=== PATIENT | female | born 1950 | race Caucasian/White ===

== ENCOUNTER 2017-01-15 13:49 | Outpatient (CLI) ==
[2016-02-09 19:26] VITALS: BMI 36.5
[2017-01-15 14:01] LABS: BASOPHILS % (AUTO) 0.6 % (0.0-3.0); EOSINOPHILS # (AUTO) 0.1 K/ul (0.0-0.7); EOSINOPHILS % (AUTO) 1.7 % (0.0-7.0); HEMATOCRIT 38.9 % (37.0-47.0); IMMATURE GRANULOCYTE % (AUTO) 0.4 % (0.0-5.0); LYMPHOCYTES # (AUTO) 1.7 K/uL (0.60-3.4); MEAN CORPUSCULAR HEMOGLOBIN 30.3 pg (27.0-31.0); MEAN CORPUSCULAR HGB CONC 33.4 (31.8-35.4); MEAN CORPUSCULAR VOLUME 90.7 fl (81.0-99.0); MONOCYTES # (AUTO) 0.3 K/uL (0.4-2.0); NEUTROPHILS # (AUTO) 3.1 K/ul (2.0-6.9); NEUTROPHILS % (AUTO) 59.3; PLATELET COUNT 208 10^3/uL (140-440); RED BLOOD COUNT 4.29 10^6/ul (4.20-5.40); WHITE BLOOD COUNT 5.15 K/ul (4.6-10.2)
[2017-01-15 14:37] LABS: ALBUMIN 4.2 g/dL (3.4-5.0); ALBUMIN/GLOBULIN RATIO 1.08; ANION GAP 15.6; BILIRUBIN,TOTAL 0.75 mg/dL (0.00-1.20); BUN/CREATININE RATIO 19.23; CALCIUM 9.9 mg/dL (8.2-10.2); CHOL/HDL RATIO 3.2 (4.5-5.5); CREATININE 1.04 mg/dL (0.60-1.30); POTASSIUM 3.6 mmol/L (3.5-5.10); TOTAL PROTEIN 8.1 g/dL (5.8-8.1)
== END 2017-01-15 13:50 | disposition home or self-care (01) ==
LOC: LAB 13:49
PROVIDERS: ATTEND Emergency Medicine
DX: E11.9 Type 2 diabetes mellitus without complications (principal); E78.5 Hyperlipidemia, unspecified; I10 Essential (primary) hypertension; F33.1 Major depressive disorder, recurrent, moderate
CPT/HCPCS: 36415; 80053; 80061; 83036; 84443; 85025

== ENCOUNTER 2017-03-26 07:55 | Outpatient (CLI) ==
[2016-02-09 19:26] VITALS: BMI 36.5
--- NOTE | 2017-03-27 09:54 | MAMMO ---
EXAM: Digital screening mammogram with 3-D tomosynthesis and CAD HISTORY: Screening for breast cancer. COMPARISON: Mammogram 04/05/2013 and 03/30/2012 FINDINGS: Breasts demonstrate scattered fibroglandular breast density. There are a few benign scatter ed calcifications. There is no new or suspicious nodule or calcification identified. IMPRESSION: No new or suspicious nodule or calcification. Recommendation: Annual screening mammogram. BIRADS II: Benign findings
== END 2017-03-26 07:56 | disposition home or self-care (01) ==
LOC: RAD 07:55
PROVIDERS: ATTEND Emergency Medicine
DX: Z12.31 Encounter for screening mammogram for malignant neoplasm of breast (principal)
CPT/HCPCS: 77067

== ENCOUNTER 2017-07-13 16:53 | Outpatient (CLI) ==
[2016-02-09 19:26] VITALS: BMI 36.5
== END 2017-07-13 16:54 | disposition home or self-care (01) ==
LOC: RHC-LAB 16:53
PROVIDERS: ATTEND Emergency Medicine
DX: E78.5 Hyperlipidemia, unspecified (principal); I10 Essential (primary) hypertension; E11.9 Type 2 diabetes mellitus without complications; N18.3 Chronic kidney disease, stage 3 (moderate)
CPT/HCPCS: 36415; 80053; 80061; 83036; 84443; 85025

== ENCOUNTER 2017-07-29 10:01 | Inpatient (IN) ==
[2017-07-29 11:04] VITALS: BMI 35.4
--- NOTE | 2017-07-29 12:32 | CT ---
EXAM: CT chest without intravenous contrast 07/29/2017. Sagittal and coronal reformatted images obt ained HISTORY: Hypoxia. Question pneumonia COMPARISON: 05/20/2013 FINDINGS: The heart size appears within normal limits. Trace pericardial effusion The pulmonary trunk measures approximately 4.3 cm diameter as seen on image 24. This is suggestive o f pulmonary arterial hypertension. Atherosclerotic vascular disease Small hiatal hernia. Emphysematous changes within both lungs. There is multifocal atelectasis.. This most prominent within the right middle lobe and lingula. There is no pulmonary mass. No pleural effusion or pneumothorax. Limited views of the upper abdomen shows surgical changes of cholecystectomy. IMPRESSION: 1. Findings suggestive of pulmonary arterial hypertension. 2. Emphysema. 3. Trace pericardial effusion. 4. Small hiatal hernia. 5. Atelectasis. 6. Atherosclerotic vascular disease. 7. Status post cholecystectomy.
[2017-07-29] MEDS ORDERED: TYLENOL PO PRN (13:24)
[2017-07-29] MEDS ORDERED: K-DUR PO STA (13:28)
[2017-07-29] MEDS ORDERED: SODIUM CHLORIDE 1,000 ML IV SCH (13:30)
[2017-07-29] MEDS ORDERED: DUONEB NEB SCH (14:00)
[2017-07-29] MEDS: TAMIFLU PO SCH ×2 (14:30→20:20)
[2017-07-29] MEDS: DUONEB NEB SCH ×2 (14:31→22:45)
[2017-07-29] MEDS: SOLU-MEDROL 125 MG IVP SCH ×2 (14:33→20:54)
[2017-07-29] MEDS: SODIUM CHLORIDE 1,000 ML IV SCH (14:34)
[2017-07-29] MEDS: GLUCOPHAGE PO SCH (17:04)
[2017-07-29] MEDS: DESYREL PO SCH (20:19)
[2017-07-29] MEDS: FERROUS SULFATE PO SCH (20:20)
[2017-07-29] MEDS: COGENTIN PO SCH (20:20)
[2017-07-29] MEDS: HALDOL PO SCH (20:20)
[2017-07-30] MEDS: DUONEB NEB SCH ×3 (05:34→21:12)
[2017-07-30] MEDS: SOLU-MEDROL 125 MG IVP SCH ×3 (05:37→20:13)
[2017-07-30] MEDS: SYNTHROID PO SCH (05:38)
[2017-07-30] MEDS: LASIX TAB PO SCH (05:38)
[2017-07-30] MEDS: CRESTOR PO SCH (09:16)
[2017-07-30] MEDS: GLUCOPHAGE PO SCH ×2 (09:16→17:34)
[2017-07-30] MEDS: ASPIRIN EC PO SCH (09:17)
[2017-07-30] MEDS: COZAAR PO SCH (09:17)
[2017-07-30] MEDS: FERROUS SULFATE PO SCH ×2 (09:17→20:12)
[2017-07-30] MEDS: LOVENOX SUBCUT SCH (09:17)
[2017-07-30] MEDS: TAMIFLU PO SCH ×2 (09:17→20:14)
[2017-07-30] MEDS ORDERED: ROBITUSSIN SUGAR-FREE PO STA (09:21)
[2017-07-30] MEDS: SODIUM CHLORIDE 1,000 ML IV SCH (17:35)
[2017-07-30] MEDS: COGENTIN PO SCH (20:12)
[2017-07-30] MEDS: HALDOL PO SCH (20:12)
[2017-07-30] MEDS: DESYREL PO SCH (20:12)
[2017-07-31] MEDS: DUONEB NEB SCH ×2 (04:42→14:22)
[2017-07-31] MEDS: SYNTHROID PO SCH (06:16)
[2017-07-31] MEDS: LASIX TAB PO SCH (06:16)
[2017-07-31] MEDS: SOLU-MEDROL 125 MG IVP SCH (06:16)
[2017-07-31] MEDS: SODIUM CHLORIDE 1,000 ML IV SCH (06:26)
[2017-07-31] MEDS ORDERED: K-DUR PO STA (08:22)
[2017-07-31] MEDS: TAMIFLU PO SCH (09:44)
[2017-07-31] MEDS: CRESTOR PO SCH (09:44)
[2017-07-31] MEDS: FERROUS SULFATE PO SCH (09:44)
[2017-07-31] MEDS: ASPIRIN EC PO SCH (09:44)
[2017-07-31] MEDS: COZAAR PO SCH (09:44)
[2017-07-31] MEDS: GLUCOPHAGE PO SCH (09:44)
[2017-07-31] MEDS: LOVENOX SUBCUT SCH (09:45)
[2017-07-31 14:15] VITALS: BP 132/75; TEMP 98.2
--- NOTE | 2017-08-14 14:20 | DS ---
DATE OF SERVICE: 07/31/17 FINAL DIAGNOSIS: 1. COPD exacerbation secondary to the influenza B positive 2. Hypoxemic respiratory failure with O2 53 3. Anemia 4. Diabetes 5. Hypokalemia which is replaced 6. Sleep apnea has BIPAP at home 7. Bilateral lower extremity edema 8. Congestive heart failure 9. GERD 10.Hypothyroidism 11.Depression 12.Anxiety DISCHARGE INSTRUCTIONS: Discharge the patient home. Continue the rest of the home medications. MEDICATIONS AT DISCHARGE: Aspirin Cogentin Ferrous Sulfate Lasix Haloperidol Levothyroxine Losartan Metformin Prednisone Crestor Trazodone NEW PRESCRIPTIONS: Tamiflu 75mg twice a day Prednisone 10mg twice a day Atrovent two puffs twice a day DIET INSTRUCTIONS: Diabetic, ADA diet and no salt ACTIVITY: As much as tolerated DISEASE SPECIFIC EDUCATION: COPD Needing for the pneumonia vaccination Antibiotic use and diarrhea Mixed of inhalers been discussed HOSPITAL COURSE: Viri Peralta came to the office with cough and congestion, shortness of breath. The patient was hypoxic on the room air, 87. The patient was admitted to the hospital. CT chest negative for any of the infiltrates but pulmonary arterial hypertension was seen and the Atherosclerotic vascular disease. Flu B was positive and the patient was started on the Tamiflu, steroids and breathing treatment. Gradually the patient started feeling better. ABG's showed the hypoxic respiratory failure with pH 7.43, pCo2 43, pO2 53. With the given treatment and IV fluids and steroids the patient started feeling better. Potassium went down to the 3.2 which was replaced. Up and about walking, less short of breath but the patient was needing oxygen as the patient's saturation was going down to 87. The patient on the room air was 87 and she automatically qualified for the home oxygenation. Home oxygen use, Oxygen and the highly flammable of oxygen been discussed and verbalized understanding. The patient is needing to use the oxygen as it was helping her to be more ambulatory. TIME SPENT: MORE THAN 65 MINUTES MTDD
== END 2017-07-31 14:37 | disposition home or self-care (01) | DRG 204 ==
LOC: MEDSURG B 10:01
PROVIDERS: ADMIT Emergency Medicine; ATTEND Emergency Medicine
DX: R06.02 Shortness of breath (principal); J96.01 Acute respiratory failure with hypoxia; J44.1 Chronic obstructive pulmonary disease with (acute) exacerbation; I27.21 Secondary pulmonary arterial hypertension; J10.1 Influenza due to other identified influenza virus with other respiratory manifestations; D64.9 Anemia, unspecified; E11.9 Type 2 diabetes mellitus without complications; R60.0 Localized edema; R50.9 Fever, unspecified; E87.6 Hypokalemia; G47.30 Sleep apnea, unspecified; K21.9 Gastro-esophageal reflux disease without esophagitis; E03.9 Hypothyroidism, unspecified; F41.8 Other specified anxiety disorders; Z99.89 Dependence on other enabling machines and devices; Z79.84 Long term (current) use of oral hypoglycemic drugs; Z79.899 Other long term (current) drug therapy
CPT/HCPCS: 36415; 80053; 81001; 82550; 82553; 82803; 82962; 83880; 84132; 84484; 85025; 87086; 87502; 93005; 93010; 94640; 94761

== ENCOUNTER 2017-11-16 09:44 | Outpatient (CLI) | END 2017-11-16 09:45 | disposition home or self-care (01) | LOC: RHC-LAB 09:44 | PROVIDERS: ATTEND Emergency Medicine | DX: E11.9 Type 2 diabetes mellitus without complications (principal); E78.5 Hyperlipidemia, unspecified; I10 Essential (primary) hypertension; N18.3 Chronic kidney disease, stage 3 (moderate) | CPT/HCPCS: 36415; 80053; 80061; 83036; 84443; 85025 ==

== ENCOUNTER 2018-03-30 12:43 | Outpatient (CLI) ==
--- NOTE | 2018-03-31 09:34 | MAMMO ---
EXAM: Bilateral digital screening mammogram (2-D and 3-D) History: Screening Comparison: Bilateral mammogram 03/26/2017 Findings: MLO and CC views of bilateral breasts demonstrate scattered fibroglandular breast parenchy ma. CAD was reviewed by the radiologist. Tomosynthesis was performed. There are no dominant masses , no suspicious microcalcifications and no architectural distortions Impression: Stable negative mammogram. Recommend followup routine screening mammography in 1 year. BIRADS 1
== END 2018-03-30 12:44 | disposition home or self-care (01) ==
LOC: RAD 12:43
PROVIDERS: ATTEND Nurse Practitioner Family
DX: Z12.31 Encounter for screening mammogram for malignant neoplasm of breast (principal)

== ENCOUNTER 2018-06-10 11:32 | Outpatient (CLI) | END 2018-06-10 11:33 | disposition home or self-care (01) | LOC: CAR 11:32 | PROVIDERS: ATTEND Nurse Practitioner Family | DX: Z01.810 Encounter for preprocedural cardiovascular examination (principal); I10 Essential (primary) hypertension; E03.9 Hypothyroidism, unspecified; E78.5 Hyperlipidemia, unspecified | CPT/HCPCS: 36415; 80053; 80061; 84443; 85025; 93005; 93010 ==

== ENCOUNTER 2018-06-21 06:09 | Day surgery (SDC) ==
[2018-06-21] MEDS: AK-DILATE 10% OPTH SOL OP PRN ×3 (06:40→06:50)
[2018-06-21] MEDS: OCUFEN 0.03% OPTH SOL OP PRN ×3 (06:40→07:10)
[2018-06-21] MEDS: TETRACAINE 0.5% UNIT-DOSE OP PRN ×5 (06:40→07:57)
[2018-06-21] MEDS: CYCLOGYL 2% OPTH OP PRN ×3 (06:40→06:50)
[2018-06-21] MEDS ORDERED: DIAMOX PO STA (06:59)
[2018-06-21 07:20] VITALS: TEMP 97.6
[2018-06-21] MEDS ORDERED: VERSED ONE (07:47)
[2018-06-21] MEDS ORDERED: DIAMOX ONE (08:50)
[2018-06-21 09:08] VITALS: BP 123/79
[2018-06-21] MEDS ORDERED: BSS WITH EPINEPHRINE OP ONE (13:31)
[2018-06-21] MEDS ORDERED: LIDOCAINE HCL 1% SDV INJ PRN (13:31)
[2018-06-21] MEDS ORDERED: BETADINE OPTH PREP OP ONE (13:31)
--- NOTE | 2018-06-22 13:51 | OP ---
PREOPERATIVE DIAGNOSIS: ADVANCED NUCLEAR CATARACT RIGHT EYE. POSTOPERATIVE DIAGNOSIS: SAME. OPERATION PHACOEMULSIFICATION ASPIRATION OF CATARACT RIGHT EYE. PLACEMENT OF POSTERIOR CHAMBER LENS. PHACO TIME 51.4 SECONDS AT 9.0% POWER. LENS MODEL LAURA [id number]. DIOPTER +24.0D. TECHNIQUE: CLEAR CORNEA. ANESTHESIA: TOPICAL ANESTHESIA W/ANESTHESIA MONITORING. OPERATIVE REPORT: Topical anesthesia consisting of Tetracaine was applied to the cornea and Xylocaine Methyl Paraben free of MFP was injected intracamerally into the anterior chamber. The patient was then brought into the operating room , prepped and draped in the usual ophthalmic manner. A lid speculum was placed and the operating microscope was used. A paracentesis was made at the 3 o' clock position. A clear corneal incision was made just out to the limbus. The anterior chamber was entered just inside the clear cornea. Viscoelastic was injected into the anterior chamber. A capsulotomy was performed with a bent # 27 gauge needle. Phacoemulsification was then performed in the posterior chamber. After completion of the phacoemulsification, residual cortical material was aspirated with the irrigation-aspiration system. The posterior capsule was polished. Viscoelastic was injected into the anterior and posterior chambers to inflate the capsular bag. Lens were placed via an Unfolder system and stabilized in the bag. Viscoelastic was removed from the anterior chamber. The wound was checked for any leakage. The four sponges were removed from the fornix. Topical antibiotic steroid and nonsteroidal drops were also applied to the cornea. A Nava shield was applied. The patient left the operating room in good condition without any complications. INTRAOPERATIVE MEDICATIONS: Xylocaine Methyl Paraben Free MPF MTDD
== END 2018-06-21 09:00 | disposition home or self-care (01) ==
LOC: SURG 06:09
PROVIDERS: ATTEND Ophthalmology
DX: H25.13 Age-related nuclear cataract, bilateral (principal); H25.043 Posterior subcapsular polar age-related cataract, bilateral

== ENCOUNTER 2018-07-07 15:41 | Outpatient (CLI) | END 2018-07-07 15:42 | disposition home or self-care (01) | LOC: RHC-LAB 15:41 | PROVIDERS: ATTEND Nurse Practitioner Family | DX: E03.9 Hypothyroidism, unspecified (principal) | CPT/HCPCS: 36415; 84443 ==

== ENCOUNTER 2018-07-12 06:23 | Day surgery (SDC) ==
[2018-07-12] MEDS ORDERED: LIDOCAINE HCL 1% SDV INJ PRN (06:55)
[2018-07-12] MEDS: TETRACAINE 0.5% UNIT-DOSE OP PRN ×6 (07:00→09:00)
[2018-07-12] MEDS: CYCLOGYL 2% OPTH OP PRN ×3 (07:00→07:10)
[2018-07-12] MEDS: AK-DILATE 10% OPTH SOL OP PRN ×3 (07:00→07:10)
[2018-07-12] MEDS: OCUFEN 0.03% OPTH SOL OP PRN ×3 (07:00→07:30)
[2018-07-12] MEDS ORDERED: DIAMOX PO STA ×2 (07:18→08:59)
[2018-07-12 07:25] VITALS: TEMP 97.9
[2018-07-12] MEDS ORDERED: VERSED ONE (09:00)
[2018-07-12] MEDS ORDERED: BSS WITH EPINEPHRINE OP ONE (09:03)
[2018-07-12] MEDS ORDERED: BETADINE OPTH PREP OP ONE (09:03)
[2018-07-12] MEDS ORDERED: DIAMOX ONE (09:55)
[2018-07-12 11:21] VITALS: BP 124/66
--- NOTE | 2018-07-12 13:17 | OP ---
PREOPERATIVE DIAGNOSIS: ADVANCED AGE RELATED NUCLEAR SCLEROTIC PLUS POSTERIOR SCLEROTIC CATARACT EXTRACTION IOL LEFT EYE. POSTOPERATIVE DIAGNOSIS: SAME. OPERATION PHACOEMULSIFICATION ASPIRATION OF CATARACT LEFT EYE. PLACEMENT OF POSTERIOR CHAMBER LENS. PHACO TIME 57.1 SECONDS AT 4.0% POWER. LENS MODEL LAURA [id number]. DIOPTER +26.5D. TECHNIQUE: CLEAR CORNEA. ANESTHESIA: TOPICAL ANESTHESIA W/ANESTHESIA MONITORING. OPERATIVE REPORT: Topical anesthesia consisting of Tetracaine was applied to the cornea and Xylocaine Methyl Paraben free of MFP was injected intracamerally into the anterior chamber. The patient was then brought into the operating room , prepped and draped in the usual ophthalmic manner. A lid speculum was placed and the operating microscope was used. A paracentesis was made at the 3 o' clock position. A clear corneal incision was made just out to the limbus. The anterior chamber was entered just inside the clear cornea. Viscoelastic was injected into the anterior chamber. A capsulotomy was performed with a bent # 27 gauge needle. Phacoemulsification was then performed in the posterior chamber. After completion of the phacoemulsification, residual cortical material was aspirated with the irrigation-aspiration system. The posterior capsule was polished. Viscoelastic was injected into the anterior and posterior chambers to inflate the capsular bag. Lens were placed via an Unfolder system and stabilized in the bag. Viscoelastic was removed from the anterior chamber. The wound was checked for any leakage. The four sponges were removed from the fornix. Topical antibiotic steroid and nonsteroidal drops were also applied to the cornea. A Nava shield was applied. The patient left the operating room in good condition without any complications. INTRAOPERATIVE MEDICATIONS: Xylocaine Methyl Paraben Free MPF MTDD
== END 2018-07-12 10:00 | disposition home or self-care (01) ==
LOC: SURG 06:23
PROVIDERS: ATTEND Ophthalmology
DX: H25.13 Age-related nuclear cataract, bilateral (principal); H25.043 Posterior subcapsular polar age-related cataract, bilateral; Z96.1 Presence of intraocular lens

== ENCOUNTER 2021-03-04 09:59 | Inpatient (IN) ==
[2021-03-04] MEDS ORDERED: SODIUM CHLORIDE 1,000 ML IV STA ×2 (10:11→10:18)
[2021-03-04] MEDS ORDERED: VENTOLIN HFA (PER PUFF-WITH SPACER) IH STA (10:14)
[2021-03-04 10:19] LABS: ABG PH 7.46 (7.35-7.45)
[2021-03-04 10:20] LABS: BEecf 4.6 (-2.0-3.0); COHb 2.2 (0.5-1.5); HCO3 28.4 (21-28); MetHb 1.5 (0-1.5); TCO2 29.6 (19-24); sO2 69.7 % (94-98); tHb 13.3 g/dl (11.7-17.4)
[2021-03-04 10:21] LABS: ABG O2 HGB 69.9 % (95-100)
[2021-03-04] MEDS ORDERED: ATROVENT HFA INHALER (PER PUFF-WITH SPACER) IH STA (10:22)
[2021-03-04 10:24] LABS: BASOPHILS % (AUTO) 0.5 % (0.0-3.0); HEMATOCRIT 37.7 % (37.0-47.0); HEMOGLOBIN 12.8 g/dl (12.0-16.0); IMMATURE GRANULOCYTE % (AUTO) 0.5 % (0.0-5.0); LYMPHOCYTES # (AUTO) 0.6 K/uL (0.60-3.4); LYMPHOCYTES % (AUTO) 31.7 (10.0-50.0); MEAN CORPUSCULAR HEMOGLOBIN 29.8 pg (27.0-31.0); MEAN CORPUSCULAR VOLUME 87.7 fl (81.0-99.0); MONOCYTES # (AUTO) 0.3 K/uL (0.4-2.0); MONOCYTES % (AUTO) 16.9 (0-10); NEUTROPHILS # (AUTO) 0.9 K/ul (2.0-6.9); NEUTROPHILS % (AUTO) 50.4 % (42.2-75.2); PLATELET COUNT 105 10^3/uL (140-440); RDW COEFFICIENT OF VARIATION 15.8 % (11.6-14.8)
[2021-03-04 10:28] LABS: BORDETELLA PARAPERTUSSIS (PCR) NOT DETECTED (NOT DETECT); BORDETELLA PERTUSSIS (PCR) NOT DETECTED (NOT DETECT); CHLAMYDIA PNEUMONIAE (PCR) NOT DETECTED (NOT DETECT); CORONAVIRUS 229E (PCR) NOT DETECTED (NOT DETECT); CORONAVIRUS HKU1 (PCR) NOT DETECTED (NOT DETECT); CORONAVIRUS NL63 (PCR) NOT DETECTED (NOT DETECT); CORONAVIRUS OC43 (PCR) NOT DETECTED (NOT DETECT); HUMAN METAPNEUMOVIRUS (PCR) NOT DETECTED (NOT DETECT); HUMAN RHINOVIRUS/ENTEROV (PCR) NOT DETECTED (NOT DETECT); INFLUENZA B (PCR) NOT DETECTED (NOT DETECT); MYCOPLASMA PNEUMONIAE (PCR) NOT DETECTED (NOT DETECT); PARAINFLUENZA VIRUS 1 (PCR) NOT DETECTED (NOT DETECT); PARAINFLUENZA VIRUS 2 (PCR) NOT DETECTED (NOT DETECT); PARAINFLUENZA VIRUS 3 (PCR) NOT DETECTED (NOT DETECT); PARAINFLUENZA VIRUS 4 (PCR) NOT DETECTED (NOT DETECT); RESPIRATORY SYNCYTIAL V (PCR) NOT DETECTED (NOT DETECT)
[2021-03-04 10:34] LABS: ALANINE AMINOTRANSFERASE 22.2 U/L (0-35); ALBUMIN 4.07 g/dL (3.5-5.0); ALKALINE PHOSPHATASE 55.2 U/L (53-141); ASPARTATE AMINO TRANSFERASE 68.4 U/L (14-36); BILIRUBIN,TOTAL 0.63 mg/dL (0.2-1.3); BLOOD UREA NITROGEN 26.7 mg/dL (7-17); CALCIUM 8.47 mg/dL (8.4-10.2); CARBON DIOXIDE 29.3 mmol/L (22-30.0); CHLORIDE 98.9 mmol/L (98-107); CREATININE 1.05 mg/dL (0.60-1.30); GLUCOSE 104.1 mg/dL (74-106); POTASSIUM 3.18 mmol/L (3.5-5.1); SODIUM 138.4 mmol/L (134.5-145); TOTAL PROTEIN 7.13 g/dL (6.3-8.2)
[2021-03-04 10:35] VITALS: BMI 26.5
--- NOTE | 2021-03-04 10:43 | DI ---
EXAM: CHEST FRONTAL VIEW HISTORY: Shortness of breath COMPARISON: 02/09/2014 FINDINGS / IMPRESSION: Mild cardiomegaly is again noted. There are bilateral infiltrates in the perihilar regions extending into the bases more noticeable on the left. These infiltrates are relatively mild and may be relate d to vascular congestion although clinical correlation for any evidence of pneumonia is recommended. There is no visible pleural fluid or pneumothorax.
[2021-03-04 10:46] LABS: WHITE BLOOD COUNT 1.83 K/ul (4.6-10.2)
[2021-03-04 11:00] LABS: MAGNESIUM 1.91 mg/dL (1.6-2.3)
[2021-03-04 11:10] LABS: ADENOVIRUS (PCR) NOT DETECTED (NOT DETECT)
[2021-03-04 11:15] LABS: SARS_COV_2 (PCR) DETECTED (NOT DETECT)
--- NOTE | 2021-03-04 13:07 | ED.PDOC ---
General ED Provider: Dr. GIUSEPPE MERCHANT MD Chief Complaint: Respiratory Complaint Stated Complaint: shortness of breath Time Seen by Provider: 03/04/21 12:30 Mode of Arrival: Wheelchair Information Source: Patient Primary Care Provider: DIGNA MORRISSEY APRN, FNP- Nursing and Triage Documentation Reviewed and Agree: Yes Does patient meet sepsis criteria?: No System Inflammatory Response Syndrome: Not Applicable Sepsis Protocol: For patient's 13 years and over: Temp is 96.8 and below OR 101 and greater Pulse >90 BPM Resp >20/minute Acutely Altered Mental Status Are patient's symptoms suggestive of a new infection, such as: -Pneumonia -Skin, Soft Tissue -Endocarditis -UTI -Bone, Joint Infection -Implantable Device -Acute Abdominal Infection -Wound Infection -Meningitis -Blood Stream Catheter Infection -Unknown Respiratory Complaint Exam Shortness of Air Complaint/Exam Onset/Duration: ~1 week ago Symptoms Are: Worse Timing: Constant Initial Severity: Mild Current Severity: Moderate Character: Reports Dyspnea at rest Aggravating: Reports None Alleviating: Reports None Associated Signs and Symptoms: Reports Cough and Fever Related History: Reports Obesity; Denies Similar episode History of Healthcare-Acquired Pneumonia: No Pulmonary Embolism Risk Factors: Reports None Cardiac Risk Factors: Reports Elevated lipids and Hypertension Pseudomonas Risk Factors: Reports None Tuberculosis Risk Factors: Reports None Home Oxygen Use: No Respiratory Distress: Moderate Stridor Present: No Tracheal Deviation: No Subcutaneous Emphysema: No Accessory Muscle Use: Yes Retractions: Diaphragmatic Diminished Breath Sounds: Yes Prolonged Expiratory Phase: Yes Unable to Speak Full Sentences: Yes Fatigue: Yes Leg Swelling: Yes Differential Diagnoses: CHF, Pulmonary Edema, Pneumonia, Pneumothorax, SARS, Bronchitis, Bronchiolitis, RSV, Bronchospasm, Laryngospasm, Mycoplasma, Sinusitis and URI Review of Systems Review Of Systems Constitutional: Reports Fever and Other (myalgias) Respiratory: Reports Cough GI: Reports Diarrhea All Other Systems: Reviewed and Negative [facility] Medical History Depression Diabetes mellitus Hyperlipidemia Hypothyroidism Hypothyroidism Mammogram declined Memory loss Skin lesion of back Family History FATHER Myocardial infarction, Onset Age: 50 Social History History of recent travel: No Surgical History History of dental surgery Status post cholecystectomy Status post hysterectomy Female Reproductive History Menstrual Hx Hysterectomy: Yes Hx Tubal Ligation: No Physical Exam Physical Exam Appearance: Reports Ill-appearing and Well-nourished Ill-appearing: Moderate Pain Distress: None Eyes: Reports PRAFUL, EOMI and Conjunctiva clear ENT: Reports Nose normal Neck: Nonsupple (age-appropriate) Respiratory: Reports Airway patent, Breath sounds equal, Breath sounds diminished, Wheezes and Retractions; Denies Respirations nonlabored Cardiovascular: Reports RRR GI/: Reports Soft, Nontender and Bowel sounds normal Musculoskeletal: Reports Normal strength and ROM intact Skin: Reports Warm, Dry and Normal color Neurological: Reports Sensation intact, Motor intact, Cranial nerves intact, Alert and Oriented Psychiatric: Reports Affect appropriate and Mood appropriate Interpretation EKG Interpretation Time of EKG #1: 10:17 Rate: Normal Rhythm: Sinus Ectopy: None [place]: Right ST Segment: Normal Interpretation: artifact present Critical Care Note Critical Care Note Total Critical Care Time (mins): 0 Course Course Hematology/Chemistry: 03/05/21 05:08 03/05/21 05:08 Orders, Labs, Meds: Lab Review 03/04/21 03/04/21 03/04/21 10:05 10:14 10:15 WBC 1.83 L* RBC 4.30 Hgb 12.8 Hct 37.7 MCV 87.7 MCH 29.8 MCHC 34.0 RDW Coeff of Dequan 15.8 H Plt Count 105 L Immature Gran % (Auto) 0.5 Neut % (Auto) 50.4 Lymph % (Auto) 31.7 Sharp % (Auto) 16.9 H Eos % (Auto) 0.0 Baso % (Auto) 0.5 Neut # (Auto) 0.9 L Lymph # (Auto) 0.6 Sharp # (Auto) 0.3 L Eos # (Auto) 0.0 Baso # (Auto) 0.0 Immature Gran # (Auto) 0.0 PT INR Puncture Site R rad Base Excess 4.6 H O2 Saturation 69.7 L ABG pH 7.46 H ABG pCO2 40.0 ABG pO2 34.0 L* ABG HCO3 28.4 H ABG Total CO2 29.6 H Pete Test + Hemoglobin 1.5 Oxyhemoglobin 69.9 L Carboxyhemoglobin 2.2 H Total Hemoglobin 13.3 FiO2 % 21.0 Sodium Potassium Chloride Carbon Dioxide Anion Gap BUN Creatinine Estimated GFR (MDRD) BUN/Creatinine Ratio Glucose Hemoglobin A1c Lactic Acid Calcium Magnesium Total Bilirubin AST ALT Alkaline Phosphatase NT-Pro-B Natriuret Pep Total Protein Albumin Globulin Albumin/Globulin Ratio Procalcitonin D-Dimer Adenovirus (PCR) Not detected B. pertussis DNA (PCR) Not detected B.parapertussis DNA PCR Not detected C. pneumoniae DNA (PCR) Not detected Coronavirus OC43 (PCR) Not detected Coronavirus HKU1 (PCR) Not detected Coronavirus 229E (PCR) Not detected Coronavirus NL63 (PCR) Not detected Human Metapneumovir PCR Not detected Influenza Type A (PCR) Not detected Influenza B (RT-PCR) Not detected M. pneumoniae (PCR) Not detected Parainfluenza 1 (PCR) Not detected Parainfluenza 2 (PCR) Not detected Parainfluenza 3 (PCR) Not detected Parainfluenza 4 (PCR) Not detected RSV (PCR) Not detected Entero/Rhino (PCR) Not detected SARS-CoV-2 (PCR) Detected H 03/04/21 03/04/21 03/04/21 10:15 10:15 10:15 WBC RBC Hgb Hct MCV MCH MCHC RDW Coeff of Dequan Plt Count Immature Gran % (Auto) Neut % (Auto) Lymph % (Auto) Sharp % (Auto) Eos % (Auto) Baso % (Auto) Neut # (Auto) Lymph # (Auto) Sharp # (Auto) Eos # (Auto) Baso # (Auto) Immature Gran # (Auto) PT INR Puncture Site Base Excess O2 Saturation ABG pH ABG pCO2 ABG pO2 ABG HCO3 ABG Total CO2 Pete Test Hemoglobin Oxyhemoglobin Carboxyhemoglobin Total Hemoglobin FiO2 % Sodium 138.4 Potassium 3.18 L Chloride 98.9 Carbon Dioxide 29.3 Anion Gap 13.38 BUN 26.7 H Creatinine 1.05 Estimated GFR (MDRD) 52.00 BUN/Creatinine Ratio 25.42 Glucose 104.1 Hemoglobin A1c Lactic Acid 1.10 Calcium 8.47 Magnesium Total Bilirubin 0.63 AST 68.4 H ALT 22.2 Alkaline Phosphatase 55.2 NT-Pro-B Natriuret Pep Total Protein 7.13 Albumin 4.07 Globulin 3.06 Albumin/Globulin Ratio 1.33 Procalcitonin < 0.05 D-Dimer Adenovirus (PCR) B. pertussis DNA (PCR) B.parapertussis DNA PCR C. pneumoniae DNA (PCR) Coronavirus OC43 (PCR) Coronavirus HKU1 (PCR) Coronavirus 229E (PCR) Coronavirus NL63 (PCR) Human Metapneumovir PCR Influenza Type A (PCR) Influenza B (RT-PCR) M. pneumoniae (PCR) Parainfluenza 1 (PCR) Parainfluenza 2 (PCR) Parainfluenza 3 (PCR) Parainfluenza 4 (PCR) RSV (PCR) Entero/Rhino (PCR) SARS-CoV-2 (PCR) 03/04/21 03/04/21 03/04/21 10:15 10:15 10:15 WBC RBC Hgb Hct MCV MCH MCHC RDW Coeff of Dequan Plt Count Immature Gran % (Auto) Neut % (Auto) Lymph % (Auto) Sharp % (Auto) Eos % (Auto) Baso % (Auto) Neut # (Auto) Lymph # (Auto) Sharp # (Auto) Eos # (Auto) Baso # (Auto) Immature Gran # (Auto) PT 10.7 INR 1.03 Puncture Site Base Excess O2 Saturation ABG pH ABG pCO2 ABG pO2 ABG HCO3 ABG Total CO2 Pete Test Hemoglobin Oxyhemoglobin Carboxyhemoglobin Total Hemoglobin FiO2 % Sodium Potassium Chloride Carbon Dioxide Anion Gap BUN Creatinine Estimated GFR (MDRD) BUN/Creatinine Ratio Glucose Hemoglobin A1c 5.64 Lactic Acid Calcium Magnesium 1.91 Total Bilirubin AST ALT Alkaline Phosphatase NT-Pro-B Natriuret Pep 549.000 H Total Protein Albumin Globulin Albumin/Globulin Ratio Procalcitonin D-Dimer Adenovirus (PCR) B. pertussis DNA (PCR) B.parapertussis DNA PCR C. pneumoniae DNA (PCR) Coronavirus OC43 (PCR) Coronavirus HKU1 (PCR) Coronavirus 229E (PCR) Coronavirus NL63 (PCR) Human Metapneumovir PCR Influenza Type A (PCR) Influenza B (RT-PCR) M. pneumoniae (PCR) Parainfluenza 1 (PCR) Parainfluenza 2 (PCR) Parainfluenza 3 (PCR) Parainfluenza 4 (PCR) RSV (PCR) Entero/Rhino (PCR) SARS-CoV-2 (PCR) 03/04/21 10:15 WBC RBC Hgb Hct MCV MCH MCHC RDW Coeff of Dequan Plt Count Immature Gran % (Auto) Neut % (Auto) Lymph % (Auto) Sharp % (Auto) Eos % (Auto) Baso % (Auto) Neut # (Auto) Lymph # (Auto) Sharp # (Auto) Eos # (Auto) Baso # (Auto) Immature Gran # (Auto) PT INR Puncture Site Base Excess O2 Saturation ABG pH ABG pCO2 ABG pO2 ABG HCO3 ABG Total CO2 Pete Test Hemoglobin Oxyhemoglobin Carboxyhemoglobin Total Hemoglobin FiO2 % Sodium Potassium Chloride Carbon Dioxide Anion Gap BUN Creatinine Estimated GFR (MDRD) BUN/Creatinine Ratio Glucose Hemoglobin A1c Lactic Acid Calcium Magnesium Total Bilirubin AST ALT Alkaline Phosphatase NT-Pro-B Natriuret Pep Total Protein Albumin Globulin Albumin/Globulin Ratio Procalcitonin D-Dimer 1103.55 H Adenovirus (PCR) B. pertussis DNA (PCR) B.parapertussis DNA PCR C. pneumoniae DNA (PCR) Coronavirus OC43 (PCR) Coronavirus HKU1 (PCR) Coronavirus 229E (PCR) Coronavirus NL63 (PCR) Human Metapneumovir PCR Influenza Type A (PCR) Influenza B (RT-PCR) M. pneumoniae (PCR) Parainfluenza 1 (PCR) Parainfluenza 2 (PCR) Parainfluenza 3 (PCR) Parainfluenza 4 (PCR) RSV (PCR) Entero/Rhino (PCR) SARS-CoV-2 (PCR) Orders Category Date Time Status ABG DRAW REQUEST Stat CARDIO 03/04/21 10:14 Completed EKG-(ED ONLY) Stat CARDIO 03/04/21 10:15 Completed METERED DOSE INHALATION Routine CARDIO 03/04/21 10:14 Completed OXYGEN Routine CARDIO 03/04/21 14:17 Active BLOOD GLUCOSE MONITORING 0630,1100,1700,2100 CARE 03/04/21 14:17 Active GIVE HS SNACK 2100 CARE 03/04/21 14:16 Active INTAKE & OUTPUT Q8HR CARE 03/04/21 14:15 Active IP: INSERT SALINE LOCK ONCE CARE 03/04/21 14:15 Active VITAL SIGNS Q8HR CARE 03/04/21 14:15 Active ADA 1800 JHONATHAN. DIET DIETARY 03/04/21 Dinner Ordered HS SNACK DIETARY 03/04/21 Dinner Ordered ED APPLY O2 .ONCE EMERGENCY 03/04/21 10:11 Active ED DIRECT SUPPORT WORKER APPLIED .ONCE EMERGENCY 03/04/21 10:11 Active ED VITAL SIGNS Q8HR EMERGENCY 03/04/21 10:11 Completed ABG COOX Stat LAB 03/04/21 10:14 Completed BLOOD CULTURE (ED ONLY) Stat LAB 03/04/21 11:15 Received CBC W/ AUTO DIFF DAILY@0600 LAB 03/05/21 05:08 Completed CBC W/ AUTO DIFF DAILY@0600 LAB 03/06/21 06:00 Ordered CBC W/ AUTO DIFF Stat LAB 03/04/21 10:15 Completed COMPREHENSIVE METABOLIC PANEL Stat LAB 03/04/21 10:15 Completed LACTIC ACID Stat LAB 03/04/21 10:15 Completed MAGNESIUM Stat LAB 03/04/21 10:15 Completed NT-PROBNP Stat LAB 03/04/21 10:15 Completed PROCALCITONIN Stat LAB 03/04/21 10:15 Completed RESPIRATORY PANEL 2.1 (PCR) Stat LAB 03/04/21 10:05 Completed Albuterol Inhaler(with Spacer) [Ventolin Hfa (Per Puff- MEDS 03/04/21 10:14 Discontinued with Spacer)] 2 puff IH ONCE STA Dexamethasone Sod Phosphate [Decadron] MEDS 03/04/21 14:30 Active 6 mg IVP DAILY Enoxaparin Sodium [Lovenox] MEDS 03/04/21 14:30 Active 40 mg SUBCUT DAILY Ipratropium Inhaler(Spacer) [Atrovent Hfa Inhaler (Per MEDS 03/04/21 10:22 Discontinued Puff-with Spacer)] 2 puff IH ONCE STA Sodium Chloride 0.9% [Sodium Chloride] 1,000 ml MEDS 03/04/21 10:18 Discontinued IV BOLUS RESUSCITATION STATUS Routine OTHERS 03/04/21 14:15 Ordered CHEST, 1V AP ONLY Stat RADS 03/04/21 10:11 Completed Medications Generic Name Dose Route Start Last Admin Trade Name Freq PRN Reason Stop Dose Admin Acetaminophen 500 mg 03/04/21 17:21 Acetaminophen 500 Mg Tablet PO Q6H PRN Pain or fever Benztropine Mesylate 1 mg 03/04/21 21:00 03/04/21 21:58 Benztropine Mesylate 1 Mg Tablet PO 1 mg BEDTIME STANISLAW Administration Calcium/Vitamin D 1 each 03/05/21 09:00 Calcium Carbonate/Vitamin D3 500 Mg/5 Mcg(200iu) 1 Each Tablet PO BID STANISLAW Dexamethasone Sodium Phosphate 6 mg 03/04/21 14:30 03/04/21 17:43 Dexamethasone Sod Phos 10 Mg/Ml Inj IVP 6 mg DAILY STANISLAW Administration Enoxaparin Sodium 40 mg 03/04/21 14:30 03/04/21 17:44 Enoxaparin Sodium 40 Mg/0.4 Ml Syr SUBCUT 40 mg DAILY STANISLAW Administration Furosemide 40 mg 03/05/21 06:30 03/05/21 05:33 Furosemide 40 Mg Tablet PO 40 mg QDAC STANISLAW Administration Haloperidol 0.5 mg 03/04/21 21:00 03/04/21 21:58 Haloperidol 0.5 Mg Tablet PO 0.5 mg BEDTIME STANISLAW Administration Azithromycin 500 mg/ Sodium 250 mls @ 125 mls/hr 03/04/21 17:30 03/04/21 21:58 Chloride IV 03/07/21 17:29 125 mls/hr DAILY STANISLAW Administration CEFTRIAXONE/D5W 1 GM PREMIX 1 gm in 50 mls @ 100 mls/hr 03/05/21 09:00 Rocephin 1 Gm/50 Ml D5w IV 03/08/21 08:59 DAILY STANISLAW Insulin Human Lispro 0 unit 03/04/21 16:47 03/05/21 07:06 Insulin Lispro 100 Unit/Ml (3 Ml) Vial SUBCUT 3 unit PRN PRN Administration hyperglycemia Protocol Levothyroxine Sodium 112 mcg 03/05/21 06:30 03/05/21 05:33 Levothyroxine Sodium 112 Mcg Tablet PO 112 mcg QDAC STANISLAW Administration Lidocaine HCl 2.1 ml 03/05/21 09:00 Lidocaine Hcl/Pf 1% 5 Ml Vial IM DAILY STANISLAW Losartan Potassium 25 mg 03/05/21 09:00 Losartan Potassium 25 Mg Tablet PO DAILY STANISLAW Potassium Chloride 20 meq 03/05/21 08:30 Potassium Chloride 20 Meq Tab PO DAILYWM STANISLAW Rosuvastatin Calcium 20 mg 03/05/21 09:00 Rosuvastatin Calcium 10 Mg Tablet PO DAILY STANISLAW Trazodone HCl 100 mg 03/04/21 21:00 03/04/21 21:58 Trazodone Hcl 50 Mg Tablet PO 100 mg BEDTIME STANISLAW Administration Discontinued Medications Generic Name Dose Route Start Last Admin Trade Name Freq PRN Reason Stop Dose Admin Albuterol Sulfate 2 puff 03/04/21 10:14 03/04/21 10:30 Albuterol Sulfate (Ventolin Hfa) 18 Gm 1 Puff With Spacer IH 03/04/21 10:15 2 puff ONCE STA Administration Benztropine Mesylate 1 mg 03/04/21 17:00 Benztropine Mesylate 1 Mg Tablet PO BEDTIME STANISLAW Ceftriaxone Sodium 1 gm 03/05/21 09:00 Ceftriaxone 1 Gm Vial 1 Gm Vial IM 03/08/21 08:59 DAILY STANISLAW Sodium Chloride 1,000 mls @ 1,000 mls/hr 03/04/21 10:18 03/04/21 10:51 Sodium Chloride IV 03/04/21 11:17 1,000 mls/hr BOLUS STA Administration Ipratropium [place] 2 puff 03/04/21 10:22 03/04/21 10:31 Ipratropium [place] 12.9 Gm Hfa Inhaler Per Puff With Spacer IH 03/04/21 10:23 2 puff ONCE STA Administration Pantoprazole Sodium 40 mg 03/04/21 16:57 03/04/21 21:59 Pantoprazole Sodium 40 Mg Tablet. PO 03/04/21 16:58 Not Given ONCE ONE Patient presented with progressively worsening SOB/low Oxygen saturation x ~1 week. PCR shows CoVid +, with negative for all other tested diseases. Her ABG was consistent with significant hypoxia. She was stable on 6L per NC, satting in the high 90s. Her WBC was quite low (1.83), with no cause evident. The CXR was consistent with mild CHF exacerbation. I spoke with her PCP, Dr Bergman, who accepted the patient for admission. Orders were placed per PCP directions. The patient was stable on transport from the ED to the medical floor. Vital Signs: Temp Pulse Resp BP Pulse Ox 03/04/21 10:30 98.2 F 90 24 90/42 L 59 L Discharge Plan Discharge Patient Disposition: ADMITTED INPATIENT Discharge Problem: COVID-19 determined by clinical diagnostic criteria CHF exacerbation Qualifiers: Heart failure type: unspecified Qualified Code(s): I50.9 - Heart failure, unspecified ED Provider: GIUSEPPE MERCHANT Condition: Stable Physician Progress Note: []
[2021-03-04] MEDS ORDERED: VEKLURY 200 MG in SODIUM CHLORIDE 250 ML IV ONE (14:15)
[2021-03-04 15:29] LABS: PROTHROMBIN TIME 10.7 SEC (9.3-11.0)
--- NOTE | 2021-03-04 16:39 | PCM ---
Chief Complaint Chief Complaint: SOA, CALIX, COVID. History of Present Illness History of Present Illness: 70-year-old female normally followed by Candice king APRN presented to emergency room on March 04 at 1230 with shortness of breath respiratory com plaints. Temperature 98.2, pulse 90, respiratory rate 24 blood pressure 90/42 pulse ox 59 on room air acutely hypoxic. She noted to ER provider 1 week worsening shortness of breath with low oxygen saturation. Worsening symptoms constant, moderate in severity with dyspnea at rest. No aggravating or alleviating factors. Cough and fever were noted. Patient has known history of obesity, nonvaccination status. Known history of hypertension obesity hyperlipidemia, depression, diabetes, hypothyroidism. She was using accessory muscles, retractions were present, diminished breath sounds throughout, a long expiratory phase, difficulty speaking in full sentences, fatigue, leg swelling. Differential from the emergency room showed CHF, pulmonary edema, pneumonia, pneumothorax, SARS, bronchitis, bronchiolitis, RSV, bronchospasm, laryngospasm, mycoplasma, sinusitis and URI. EKG was completed at 1017 and felt to be normal. Labs showed a bicytopenia with a white blood cell count of 1.83, hemoglobin 12.8 normal and platelets of 105,000 which is low. Differential showed a monocytosis of 16.9% neutrophils of 50.4% lymphocytes 31.7% and a limited number of 0.6. Chemistry panel showed sodium 138.4, potassium low at 3.18, BUN 26.7 creatinine 1.05 and a glucose of 104.1. ABG showed base excess 4.6, O2 saturation 69.7, pH 7.46 PCO2 of 40, PO2 of 34, bicarb 20.4 CO2 29.6. She did pass Pete's test. Covid was positive on PCR. Lactic acid was 1.10 procalcitonin is less than 0.05. Calcium 8.47. Remainder of metabolic panel within acceptable limits. Magnesium of 1.91 proBNP mildly elevated at 549. She was given albuterol in the emergency room, IV fluids 1 L bolus and ipratropium bromide. ABG was consistent with hypoxia. She was started on 6 L nasal canula. This allowed her to saturate in the high 90s. Unknown cause of the bicytopenia. They discussed case with me accepted admission. Patient was transported to SCU for further admission. She will be admitted to inpatient status. We will use oxygen via nasal cannula to maintain saturation greater than 92%. Blood cultures have been collected. We will get a metabolic panel daily and a CBC daily to monitor the platelets and white blood cell count. We will add Lovenox 40 mg of cutaneous daily for DVT prophylaxis. We will check a ferritin to monitor for symptoms. We will check this every other day. The patient has not had a A1c since 2018. And this was listed at 4.9. I will repeat A1c today. ABG interpretation primary metabolic alkalosis with full respiratory compensation.Home meds were reviewed we will continue the albuterol in the hospital we will also continue ipratropium. We will use the shared canister technique due to Covid status. I will hold the iron while in hospital. We will continue her losartan Crestor benztropine Haldol trazodone Lasix levothyroxine. I have started her on dexamethasone 6 mg daily. We have discussed remdesivir with the patient and she does not want this. We reviewed the risks and benefits to hospitalization. We have discussed risks with intubation. Patient is a DO NOT RESUSCITATE status. She is aware of what this means. We will cover fever with Tylenol. We will cover thromboprophylaxis as noted above. Due to oxygen need, dexamethasone is recommended as is remdesivir. Again patient has declined this. I will try to maintain her on the matrix drier tender statu s to avoid overhydration and fluid within the lungs. We will escalate therapy as needed. She is a DO NOT INTUBATE. We will consider Vapotherm and/or BiPAP as needed. We will add telemetry for monitoring as well. There is lack of benefit to Reg[place] inside of hospitalized patients. Other agents such as ivermectin, Plaquenil, chloroquine, convalescent plasma etc. are no longer recommended. Respiratory support will be monitored. At this time we will continue to monitor patient for worsening. We will maintain her on nasal cannula until she needs more and we will escalate care as needed. Again remdesivir was declined by patient. We will start her on azithromycin and on ceftriaxone today. The patient POA is currently admitted with COVID as well. Nobody at home to help patient. Patient is unable to care for self. She is living with her aunt Nelson lawrence. Patient was seen in room SCU3. She does not want remdeseviir. She does not want to be in hospital. She is SOA at rest. She asked for me to talk with her aunt. I did talk with patient ABDIFATAH in room SCU-2 and discussed the above information. Nelson noted patient cannot care for self, cannot cook for self, cannot be alone at home. They do not want patient in senior living. Do not want patient transferred. They do not want intubation, do not want CPR, do not want resuscitation. At present we will continue to provide care as listed. I reviewed the low WBC. I reviewed low plt and low K+ with nelson. They want comfort care, whatever that means in current state. REVIEW OF SYMPTOMS: (Positives bolded) General: weight loss, fever, chills, night sweats, fatigue, appetite loss HEENT: blurry vision, eye pain, eye discharge, dry eyes, decreased vision, sore throat tinnitus, bloody nose, hearing loss, sinus pain/pressure, ear pain/pressure. Respiratory: shortness of breath,cough, hemoptysis, wheezing, pleurisy, CALIX Cardiovascular: chest pain, PND, palpitation, edema, orthopnea, syncope, swelling of extremities Gastro: Nausea, vomiting, diarrhea, hematemesis, abdominal pain, constipation Genito: hematuria, dysuria, glycosuria, hesitancy, frequency, incontinence [place]: Arthralgia, myalgia, muscle weakness, joint swelling, NSAID use Skin: rash, pruritis, sores, nail changes, skin thickening, change in wart/mole, itching, rash, new lesions, pruritus, nail changes Neuro: Migraine, numbness, ataxia, tremor, vertigo, weakness, memory loss, Irritability, dizziness Endocrine: excessive thirst, polyuria, cold intolerance, heat intolerance, goiter Psychiatric: depression, anxiety, anti-depressants, alcohol abuse, drug abuse, insomnia, change in sleep pattern and mood changes Heme/lymph: easy bruising, bleeding gums, blood clots, swollen glands, lymphedema, Allergic/immune: allergic rhinitis, hay fever, asthma, hives Vital Signs - 24 hr 03/04/21 10:30 03/04/21 16:39 03/04/21 17:12 Temperature 98.2 F 98.2 F 97.9 F Pulse Rate 90 90 77 Respiratory Rate 24 24 18 Blood Pressure 90/42 L 90/42 L 126/70 O2 Sat by Pulse Oximetry 59 L 59 L 93 L 03/04/21 17:16 Temperature Pulse Rate 79 Respiratory Rate Blood Pressure O2 Sat by Pulse Oximetry Constitutional: Appearance-No acute distress, Consistent with stated age. Orientation- Oriented x 3, alert, no obvious accessory use at this time. Patient did not provide much information/history. Limited understanding. Build and Nutrition-[mildly overweight bmi 26.6. ] General- Patient is pleasant and cooperative with the interview and exam. Integumentary: General-No rashes, ulcers or lesions. Nurse present at window during eval in full PPE. No breakdown buttock, under breast, abdomen, thighs, or ischial tuberosities. Palpation- Normal skin moisture/turgor. Skin is warm to touch, appropriate. Capillary refill is normal bilateral Upper and lower extremity. Head/Neck: Head- normocephalic and atraumatic. Neck- without visible/palpable lumps or pulsations. Palpation- No bony tenderness about head/neck along frontal, occipital, temporal, parietal, mastoid, jawline, zygoma, orbit or any other location. NO temporal artery tenderness. No TMJ tenderness. Neck Supple. Thyroid-No thyromegaly, no nodules Eye: Bilaterally PERRLA, EOMI. No discharge. Upper and lower eyelids are normal. Sclera/conjunctiva normal without discharge. Cornea is normal and clear. Lens is normal. Eyeball appears normal. No ciliary flushing, no conjunctival injection. ENMT: Pinna- normal without tenderness or erythema. External auditory canal Left- normal without erythema or discharge, no excessive cerumen. External auditory canal Right-normal without erythema or discharge, no excessive cerumen. TM left- Weber/pearly, normal light reflex and anatomy TM Right- Weber/pearly, normal light reflex and anatomy Hearing Assessment-normal to conversational speech. Nose and sinus- No sinus tenderness along frontal/maxillary region. External appearance normal and midline. Nares- bilateral quiet airflow, no discharge. Nasal mucosa- No bleeding noted and no ulcerations observed. [place], moist. Turbinates non boggy. Lips- normal color, moist without cracks/lesions Oral Cavity/Palate- hard/soft palate intact without lesions, oral mucosa pink and moist. Dentition assessed [] and discussed appropriate oral care. Tongue normal midline. Oropharynx- no pharyngeal erythema, Uvula midline. No post nasal drip. No exudate. Salivary glands- Non tender to palpation CHEST/LUNG: Inspection- symmetric chest wall no pectus deformity. Mild to early moderate increased effort, no obviou sdistress, Patient is calm. Minimal to no use of accessory muscles. Palpation- nontender sternum, ribline. No abnormal pulsations. Auscultation- Breath sounds coarse and diffuse throughout all lung alexander. tracheal sounds, bronchial sounds overlying sternum, Bronchovessicular sounds between scapulae posteriorly, vessicular breath sounds heard throughout periphery. No e/o consolidation. Adventitious sounds- scattered rhonchi, distant sounds, no wheezes. CARDIOVASCULAR: Carotid artery- normal, no bruits or abnormal pulsations. Jugular vein- no pulsations. Palpation/Percussion- Normal PMI, no palpable thrill Auscultation- Regular rate and rhythm. No murmur noted in sitting, supine positions. Extremities- no digital clubbing, cyanosis, edema, increased warmth. ABDOMEN:Inspection- normal and no visible pulsations. Normal contour. Auscultation- Bowel sounds normal, no abdominal bruits. Palpation/Percussion- soft, non-tender, no rebound tenderness, no rigidity (guarding), no jar tenderness, no masses. Liver-no hepatomegaly, Spleen no splenomegaly, Hernias - none. Rectal not examined. Peripheral Vascular: Upper extremity Left- Normal temperature with pink nailbeds and no ulcerations. Upper extremity Right- Normal temperature with pink damir lbeds and no ulcerations. Lower extremity- Normal temperature with pink nailbeds and no ulcerations. DP pulses 2+ bilaterally. Pedal hair intact. Normal capillary refill. Edema- No edema. Musculoskeletal: Generalized-No generalized swelling or edema of extremities, no digital clubbing or cyanosis, neurovascularly intact all four extremities. Upper extremity- Symmetrical posture. No visible deformity. Normal sensation along medial and lateral upper extremity proximally and distally. NO tenderness overlying shoulder, lateral/medial epicondyle. [employer] 5/5 and strength 5/5 bilateral UE. Elbow palpated, no tenderness overlying olecranon. Normal supination, pronation to active/passive ROM and to resisted rotation. Bicep insertion/tricep insertion appear normal without obvious pathology. Rotator cuff evaluated and intact. Normal wrist ROM bilaterally. Normal hand movement, intrinsic muscles of hands normal. No tenderness to palpation of hands/wrists/elbows. Lower extremity- Hip: Not tender to palpation, no pain, no swelling, edema or erythema of surrounding tissue, normal strength and tone. Normal appearing hip ROM bilaterally without pain. Knee: Knee ROM normal. No tenderness overlying trochanters, no tenderness about patella, quad tendon, patellar tendon. No tenderness at tibial tuberosity. Ankle: normal ROM not tender to palpation along medial/lateral malleolus. Spine/Ribs- No deformities, masses or tenderness, no known fractures, normal strength, Normal ROM. Normal stability No tenderness along C/T/L spine. Normal appearing ROM about spine. Neurological: General- Moves all 4 extremities symmetrically. Symmetrical face and body posture. Cranial nerves- individually evaluated II-XII and intact. PERRLA, Normal EOMI, visual/special senses appear intact, Face is symmetrical and normal sensation/movement, normal tongue, normal strength/posture of neck musculature. Reflexes- intact with DTR 2+ patellar, Achilles, bicep, brachial, tricep. Ankle clonus normal with 2 beats. Strength- 5/5 bilateral UE and LE. Soft touch- intact bilateral UE and LE. Temperature sensation- intact bilateral UE and LE. Neuropsych: Oriented- Person, place, time. (AAOx3), Mood/affect- FLAT, limited interaction. Not able to articulate well. Speech-Limited speech, Limited understanding. Thought content- limited. Associations- concrete. Judgment/insight- InAppropriate, limited understanding. Lymphatic: Head/Neck- normal size and non tender to palpation. Axillary- normal size and non tender to palpation. Femoral and Inguinal- normal size and non tender to palpation. Allergies Allergies Allergy/AdvReac Type Severity Reaction Status Date / Time No Known Allergies Allergy Verified 03/04/21 11:09 [facility] Medical History Depression Diabetes mellitus Hyperlipidemia Hypothyroidism Hypothyroidism Mammogram declined Memory loss Skin lesion of back Surgical History History of dental surgery Status post cholecystectomy Status post hysterectomy Family History FATHER Myocardial infarction, Onset Age: 50 Social History History of recent travel: No Medications Medications: Medications Generic Name Dose Route Start Last Admin Trade Name Brian PRN Reason Stop Dose Admin Dexamethasone Sodium Phosphate 6 mg 03/04/21 14:30 Dexamethasone Sod Phos 10 Mg/Ml Inj IVP DAILY STANISLAW Enoxaparin Sodium 40 mg 03/04/21 14:30 Enoxaparin Sodium 40 Mg/0.4 Ml Syr SUBCUT DAILY STANISLAW Body Composition Height: 5 ft 3 in Weight: 150 lb Body Mass Index (BMI): 26.5 Vital Signs Temperature: 98.2 F Pulse Rate: 90 Respiratory Rate: 24 Blood Pressure: 90/42 O2 Sat by Pulse Oximetry: 59 Lab/Tests/Diagnostic Imaging Lab/Tests/Diagnostic Imaging: Lab Review 03/04/21 03/04/21 03/04/21 10:05 10:14 10:15 WBC 1.83 L* RBC 4.30 Hgb 12.8 Hct 37.7 MCV 87.7 MCH 29.8 MCHC 34.0 RDW Coeff of Dequan 15.8 H Plt Count 105 L Immature Gran % (Auto) 0.5 Neut % (Auto) 50.4 Lymph % (Auto) 31.7 [place] % (Auto) 16.9 H Eos % (Auto) 0.0 Baso % (Auto) 0.5 Neut # (Auto) 0.9 L Lymph # (Auto) 0.6 [place] # (Auto) 0.3 L Eos # (Auto) 0.0 Baso # (Auto) 0.0 Immature Gran # (Auto) 0.0 PT INR Puncture Site R rad Base Excess 4.6 H O2 Saturation 69.7 L ABG pH 7.46 H ABG pCO2 40.0 ABG pO2 34.0 L* ABG HCO3 28.4 H ABG Total CO2 29.6 H Pete Test + Hemoglobin 1.5 Oxyhemoglobin 69.9 L Carboxyhemoglobin 2.2 H Total Hemoglobin 13.3 FiO2 % 21.0 Sodium Potassium Chloride Carbon Dioxide Anion Gap BUN Creatinine Estimated GFR (MDRD) BUN/Creatinine Ratio Glucose Lactic Acid Calcium Magnesium Total Bilirubin AST ALT Alkaline Phosphatase NT-Pro-B Natriuret Pep Total Protein Albumin Globulin Albumin/Globulin Ratio Procalcitonin Adenovirus (PCR) Not detected B. pertussis DNA (PCR) Not detected B.parapertussis DNA PCR Not detected C. pneumoniae DNA (PCR) Not detected Coronavirus OC43 (PCR) Not detected Coronavirus HKU1 (PCR) Not detected Coronavirus 229E (PCR) Not detected Coronavirus NL63 (PCR) Not detected Human Metapneumovir PCR Not detected Influenza Type A (PCR) Not detected Influenza B (RT-PCR) Not detected M. pneumoniae (PCR) Not detected Parainfluenza 1 (PCR) Not detected Parainfluenza 2 (PCR) Not detected Parainfluenza 3 (PCR) Not detected Parainfluenza 4 (PCR) Not detected RSV (PCR) Not detected Entero/Rhino (PCR) Not detected SARS-CoV-2 (PCR) Detected H 03/04/21 03/04/21 03/04/21 10:15 10:15 10:15 WBC RBC Hgb Hct MCV MCH MCHC RDW Coeff of Dequan Plt Count Immature Gran % (Auto) Neut % (Auto) Lymph % (Auto) [place] % (Auto) Eos % (Auto) Baso % (Auto) Neut # (Auto) Lymph # (Auto) [place] # (Auto) Eos # (Auto) Baso # (Auto) Immature Gran # (Auto) PT INR Puncture Site Base Excess O2 Saturation ABG pH ABG pCO2 ABG pO2 ABG HCO3 ABG Total CO2 Pete Test Hemoglobin Oxyhemoglobin Carboxyhemoglobin Total Hemoglobin FiO2 % Sodium 138.4 Potassium 3.18 L Chloride 98.9 Carbon Dioxide 29.3 Anion Gap 13.38 BUN 26.7 H Creatinine 1.05 Estimated GFR (MDRD) 52.00 BUN/Creatinine Ratio 25.42 Glucose 104.1 Lactic Acid 1.10 Calcium 8.47 Magnesium Total Bilirubin 0.63 AST 68.4 H ALT 22.2 Alkaline Phosphatase 55.2 NT-Pro-B Natriuret Pep Total Protein 7.13 Albumin 4.07 Globulin 3.06 Albumin/Globulin Ratio 1.33 Procalcitonin < 0.05 Adenovirus (PCR) B. pertussis DNA (PCR) B.parapertussis DNA PCR C. pneumoniae DNA (PCR) Coronavirus OC43 (PCR) Coronavirus HKU1 (PCR) Coronavirus 229E (PCR) Coronavirus NL63 (PCR) Human Metapneumovir PCR Influenza Type A (PCR) Influenza B (RT-PCR) M. pneumoniae (PCR) Parainfluenza 1 (PCR) Parainfluenza 2 (PCR) Parainfluenza 3 (PCR) Parainfluenza 4 (PCR) RSV (PCR) Entero/Rhino (PCR) SARS-CoV-2 (PCR) 03/04/21 03/04/21 10:15 10:15 WBC RBC Hgb Hct MCV MCH MCHC RDW Coeff of Dequan Plt Count Immature Gran % (Auto) Neut % (Auto) Lymph % (Auto) [place] % (Auto) Eos % (Auto) Baso % (Auto) Neut # (Auto) Lymph # (Auto) [place] # (Auto) Eos # (Auto) Baso # (Auto) Immature Gran # (Auto) PT 10.7 INR 1.03 Puncture Site Base Excess O2 Saturation ABG pH ABG pCO2 ABG pO2 ABG HCO3 ABG Total CO2 Pete Test Hemoglobin Oxyhemoglobin Carboxyhemoglobin Total Hemoglobin FiO2 % Sodium Potassium Chloride Carbon Dioxide Anion Gap BUN Creatinine Estimated GFR (MDRD) BUN/Creatinine Ratio Glucose Lactic Acid Calcium Magnesium 1.91 Total Bilirubin AST ALT Alkaline Phosphatase NT-Pro-B Natriuret Pep 549.000 H Total Protein Albumin Globulin Albumin/Globulin Ratio Procalcitonin Adenovirus (PCR) B. pertussis DNA (PCR) B.parapertussis DNA PCR C. pneumoniae DNA (PCR) Coronavirus OC43 (PCR) Coronavirus HKU1 (PCR) Coronavirus 229E (PCR) Coronavirus NL63 (PCR) Human Metapneumovir PCR Influenza Type A (PCR) Influenza B (RT-PCR) M. pneumoniae (PCR) Parainfluenza 1 (PCR) Parainfluenza 2 (PCR) Parainfluenza 3 (PCR) Parainfluenza 4 (PCR) RSV (PCR) Entero/Rhino (PCR) SARS-CoV-2 (PCR) Orders Category Date Time Status ADMIT PATIENT INPATIENT .TO SCU (MONITORED BED) ADMISSION 03/04/21 16:19 Active ABG DRAW REQUEST Stat CARDIO 03/04/21 10:14 Completed EKG-(ED ONLY) Stat CARDIO 03/04/21 10:15 Completed METERED DOSE INHALATION Routine CARDIO 03/04/21 10:14 Completed OXYGEN Routine CARDIO 03/04/21 14:17 Active BLOOD GLUCOSE MONITORING 0630,1100,1700,2100 CARE 03/04/21 14:17 Active GIVE HS SNACK 2100 CARE 03/04/21 14:16 Active INTAKE & OUTPUT Q8HR CARE 03/04/21 14:15 Active INTAKE & OUTPUT Q8HR CARE 03/04/21 16:13 Active IP: INSERT SALINE LOCK ONCE CARE 03/04/21 14:15 Active IP: INSERT SALINE LOCK ONCE CARE 03/04/21 16:13 Active TELEMETRY MONITORING TELE CARE 03/04/21 16:21 Active VITAL SIGNS Q8HR CARE 03/04/21 14:15 Active VITAL SIGNS Q8HR CARE 03/04/21 16:13 Active ADA 1800 JHONATHAN. DIET DIETARY 03/04/21 Dinner Ordered HS SNACK DIETARY 03/04/21 Dinner Ordered ED APPLY O2 .ONCE EMERGENCY 03/04/21 10:11 Active ED FORM COVERER APPLIED .ONCE EMERGENCY 03/04/21 10:11 Active ED VITAL SIGNS Q8HR EMERGENCY 03/04/21 10:11 Active ABG COOX Stat LAB 03/04/21 10:14 Completed BASIC METABOLIC PANEL DAILY@0600 LAB 03/05/21 06:00 Ordered BASIC METABOLIC PANEL DAILY@0600 LAB 03/06/21 06:00 Ordered BLOOD CULTURE (ED ONLY) Stat LAB 03/04/21 11:15 Received CBC W/ AUTO DIFF DAILY@0600 LAB 03/05/21 06:00 Ordered CBC W/ AUTO DIFF DAILY@0600 LAB 03/06/21 06:00 Ordered CBC W/ AUTO DIFF Stat LAB 03/04/21 10:15 Completed COMPREHENSIVE METABOLIC PANEL Stat LAB 03/04/21 10:15 Completed LACTIC ACID Stat LAB 03/04/21 10:15 Completed MAGNESIUM Stat LAB 03/04/21 10:15 Completed NT-PROBNP Stat LAB 03/04/21 10:15 Completed PROCALCITONIN Stat LAB 03/04/21 10:15 Completed PT WITH INR DAILY@0600 LAB 03/05/21 06:00 Ordered PT WITH INR DAILY@0600 LAB 03/06/21 06:00 Ordered PT WITH INR DAILY@0600 LAB 03/07/21 06:00 Ordered PT WITH INR DAILY@0600 LAB 03/08/21 06:00 Ordered PT WITH INR Stat LAB 03/04/21 10:15 Completed RESPIRATORY PANEL 2.1 (PCR) Stat LAB 03/04/21 10:05 Completed TROPONIN I DAILY@0600 LAB 03/05/21 06:00 Ordered Albuterol Inhaler(with Spacer) [Ventolin Hfa (Per Puff- MEDS 03/04/21 10:14 Discontinued with Spacer)] 2 puff IH ONCE STA Dexamethasone Sod Phosphate [Decadron] MEDS 03/04/21 14:30 Active 6 mg IVP DAILY Enoxaparin Sodium [Lovenox] MEDS 03/04/21 14:30 Active 40 mg SUBCUT DAILY Ipratropium Inhaler(Spacer) [Atrovent Hfa Inhaler (Per MEDS 03/04/21 10:22 Discontinued Puff-with Spacer)] 2 puff IH ONCE STA Sodium Chloride 0.9% [Sodium Chloride] 1,000 ml MEDS 03/04/21 10:18 Discontinued IV BOLUS RESUSCITATION STATUS Routine OTHERS 03/04/21 14:15 Ordered CHEST, 1V AP ONLY Stat RADS 03/04/21 10:11 Completed Medications Generic Name Dose Route Start Last Admin Trade Name Freq PRN Reason Stop Dose Admin Dexamethasone Sodium Phosphate 6 mg 03/04/21 14:30 Dexamethasone Sod Phos 10 Mg/Ml Inj IVP DAILY STANISLAW Enoxaparin Sodium 40 mg 03/04/21 14:30 Enoxaparin Sodium 40 Mg/0.4 Ml Syr SUBCUT DAILY STANISLAW Discontinued Medications Generic Name Dose Route Start Last Admin Trade Name Freq PRN Reason Stop Dose Admin Albuterol Sulfate 2 puff 03/04/21 10:14 03/04/21 10:30 Albuterol Sulfate (Ventolin Hfa) 18 Gm 1 Puff With Spacer IH 03/04/21 10:15 2 puff ONCE STA Administration Sodium Chloride 1,000 mls @ 1,000 mls/hr 03/04/21 10:18 03/04/21 10:51 Sodium Chloride IV 03/04/21 11:17 1,000 mls/hr BOLUS STA Administration Ipratropium [place] 2 puff 03/04/21 10:22 03/04/21 10:31 Ipratropium [place] 12.9 Gm Hfa Inhaler Per Puff With Spacer IH 03/04/21 10:23 2 puff ONCE STA Administration IMAGING: Mild cardiomegaly is again noted. There are bilateral infiltrates in the perihilar regions extending into the bases more noticeable on the left. These infiltrates are relatively mild and may be related to vascular congestion although clinical correlation for any evidence of pneumonia is recommended. There is no visible pleural fluid or pneumothorax. Assessment (1) COVID-19 determined by clinical diagnostic criteria: Status: Acute Code(s): U07.1 - COVID-19 SNOMED Code(s): 466711294 (2) Pneumonia due to COVID-19 virus: Status: Acute Code(s): U07.1 - COVID-19; J12.82 - Pneumonia due to coronavirus disease 2019 SNOMED Code(s): 341349076576583456 (3) Acquired hypothyroidism: Status: Acute Code(s): E03.9 - Hypothyroidism, unspecified SNOMED Code(s): 179576681 (4) CKD (chronic kidney disease) stage 3, GFR 30-59 ml/min: Status: Acute Code(s): N18.3 - Chronic kidney disease, stage 3 (moderate) SNOMED Code(s): 931606798 (5) COPD (chronic obstructive pulmonary disease): Status: Acute Code(s): J44.9 - Chronic obstructive pulmonary disease, unspecified SNOMED Code(s): 86812622 Qualifiers: COPD type: unspecified COPD Qualified Code(s): J44.9 - Chronic obstructive pulmonary disease, unspecified (6) Dyslipidemia: Status: Acute Code(s): E78.5 - Hyperlipidemia, unspecified SNOMED Code(s): 108368220 (7) Essential (primary) hypertension: Status: Acute Code(s): I10 - Essential (primary) hypertension SNOMED Code(s): 49143052 (8) Type 2 diabetes mellitus without complication, without long-term current use of insulin: Status: Acute Code(s): E11.9 - Type 2 diabetes mellitus without complications SNOMED Code(s): 971641193 (9) Depression: Status: None Code(s): F32.9 - Major depressive disorder, single episode, unspecified SNOMED Code(s): 48161772 Plan Plan: COVID Pneumonia/Hypoxia: 70-year-old female hospital day #1.Admitted for shortness of breath and Covid positive status. Patient has declined remdesivir. ER physician added CHF exacerbation as a possibility. We will monitor daily weight and will continue her home dose of Lasix. We will limit fluids while in hospital. We will start dexamethasone 6 mg IVP daily. She did get a 1000 cc bolus of saline in the ER which I will not continue. Chest x-ray was monitored. I do not feel we need to repeat this. I will check a ferritin every other day. . For patients requiring low-flow supplemental oxygen it is recommended to use low-dose dexamethasone and remdesivir. I will add a CRP daily to monitor. If the patient requires additional oxygenation we will consider Vapotherm versus BiPAP as next levels. The patient is a DO NOT INTUBATE and we will not intubate or resuscitate. There is limited role for other therapies at this time. Imaging suggested possible pneumonia and we will treat with 3 days of azithromycin 500 mg IV and Rocephin 1 g IV. I will limit fluids to prevent over hydrating the lungs. I will also check a D-dimer and if significantly positive we will consider a CTA. Additionally we will check a troponin every 2 to 3 days. Even though she has a low procalcitonin I suspect benefit for antibiotics. Covid typically has a low secondary bacterial infection. I would recommend using it for this patient. - Admit inpatient - Telemetry -Oxygen to maintain saturation greater than 92%. Start with nasal cannula 6 L. If needed moved to Vapotherm as next level. -DVT prophylaxis with Lovenox 40 mg of behaviors daily. -Labs: CBC, CMP daily CRP daily. Troponin q 2-3 days. Ferritin every other day. A1c x1. TSH x1. - Imaging reviewed, no further imaging as of admit. -Remdesivir declined - Tylenol 500 q. 6 hours as needed for pain and fever HTN: Hypotensive on admission. 1 L NS admin. Will continue losartan 25mg daily. No IV fluids for now. Bicytopenia: Status unknown may be due to Covid. We will continue to monitor. Daily CBC recommended. May consider peripheral blood smear as next level. May consider CT abdomen pelvis as well to evaluate status of spleen - Monitor WBC/Plt daily w/ CBC. Acquired Hypothyoidism: Chronic problem on levothyroxine. I will check a TSH in the morning. TSH goal 1-3. - TSH in am. Diabetes 2 A1C Goal <7%: Status unknown. We will check an A1c. She has not had one in the last 30 days. This is reasonable. Most recent was several years ago and below 6%. We will monitor with q. ACH S Accu-Cheks with sliding scale insulin. She will be on steroids and thus we will monitor her sugars closely goal 1 20-1 50 glucose. -AC at bedtime Accu-Cheks - Sliding scale Depression: Chronic process. We will continue home medications. -Continue Cogentin and Haldol. Insomnia: Chronic process. We will continue home medications continue trazodone, Haldol and Cogentin. - Continue home meds Hyperlipidemia: We will continue Crestor. There is some evidence that Crestor may actually be associated with 32% lower odds of among patients hospitalized for Covid with history of hyperlipidemia. We will continue this medication. - Continue home meds. DIet: ADA 1800 kcal DVT prophy: Lovenox subcut 40mg daily. GI PROPHY: As the patient is on dexamethasone, we will cover for GI prophylaxis for ulcer prevention. -Protonix 40 mg daily CODE STATUS: DNR. Disposition: The patient's current Covid status, age, remdesivir. and medical problems put her at risk for complications of COVID-19. She is a DNR. She is a DNI. She has declined remdesivir. She is on supplemental oxygen and supplemental dexamethasone. We will continue nasal cannula treatment for the hypoxia. We will monitor labs as listed above.70 minutes spent with patient today. Case discussed with emergency room physician, nursing, telemetry reviewed, history obtained from ABDIFATAH Lawrence. I will see patient back in the morning tomorrow.
[2021-03-04] MEDS ORDERED: HUMALOG SUBCUT PRN (16:47)
[2021-03-04] MEDS ORDERED: PROTONIX PO ONE (16:57)
[2021-03-04] MEDS ORDERED: COGENTIN PO SCH ×2 (17:00→21:00)
[2021-03-04] MEDS ORDERED: TYLENOL PO PRN (17:21)
[2021-03-04] MEDS: DECADRON IVP SCH (17:43)
[2021-03-04] MEDS: LOVENOX SUBCUT SCH (17:44)
[2021-03-04] MEDS ORDERED: DESYREL PO SCH (21:00)
[2021-03-04] MEDS ORDERED: HALDOL PO SCH (21:00)
[2021-03-04] MEDS: ZITHROMAX 500 MG in SODIUM CHLORIDE 250 ML IV SCH (21:58)
--- NOTE | 2021-03-04 22:21 | CT ---
EXAM: CTA chest HISTORY: Elevated D-dimer COMPARISON: None. FINDINGS: Postcontrast helical imaging was obtained through the thorax utilizing 3-mm collimation. Sagittal and coronal reconstructions were imaged and reviewed.. 3-D volume rendered images are submi tted.. Thoracic inlet is unremarkable. There is no hilar mediastinal lymphadenopathy. The ascendin g aorta is ectatic measuring 3.2 cm. There is borderline cardiomegaly with coronary artery calcifica tion. Pulmonary artery enlargement suggesting pulmonary artery hypertension. There is no evidence of pulmonary embolus. Cough. There are emphysematous changes.. Foci of atelectasis and/or pneumonia is seen within the right middle lobe and lingula.. Bronchial wall thickening with interstitial prom inence is noted at the left lung base. There is no evidence of a pleural effusion. Bone windows rev eals no evidence of lytic or blastic lesions. IMPRESSION: No evidence of pulmonary embolus. Emphysematous changes. Pulmonary artery hypertension. Foci of atelectasis and/or pneumonia within the right middle lobe, lingula and left lung base. Hiatal hernia. All CT scans are performed using dose optimization techniques as appropriate to the performed exam an d include at least one of the following: Automated exposure control, adjustment of the mA and/or kV according t o size, and the use of iterative reconstruction technique.
[2021-03-05 05:20] LABS: HEMATOCRIT 37.5 % (37.0-47.0); HEMOGLOBIN 12.6 g/dl (12.0-16.0); MEAN CORPUSCULAR HEMOGLOBIN 29.4 pg (27.0-31.0); MEAN CORPUSCULAR HGB CONC 33.6 (31.8-35.4); MEAN CORPUSCULAR VOLUME 87.6 fl (81.0-99.0); PLATELET COUNT 113 10^3/uL (140-440); RDW COEFFICIENT OF VARIATION 15.6 % (11.6-14.8); RED BLOOD COUNT 4.28 10^6/ul (4.20-5.40)
[2021-03-05 05:30] LABS: ALBUMIN 3.73 g/dL (3.5-5.0); ALKALINE PHOSPHATASE 53.2 U/L (53-141); ASPARTATE AMINO TRANSFERASE 63.6 U/L (14-36); BILIRUBIN,TOTAL 0.46 mg/dL (0.2-1.3); BLOOD UREA NITROGEN 16.5 mg/dL (7-17); CALCIUM 8.12 mg/dL (8.4-10.2); CARBON DIOXIDE 26.8 mmol/L (22-30.0); CHLORIDE 104.7 mmol/L (98-107); CREATININE 0.64 mg/dL (0.60-1.30); GLUCOSE 157.7 mg/dL (74-106); POTASSIUM 3.47 mmol/L (3.5-5.1); SODIUM 141.2 mmol/L (134.5-145); TOTAL PROTEIN 6.75 g/dL (6.3-8.2)
[2021-03-05 05:42] LABS: TROPONIN I 0.022 ng/ml (0.0000-0.120)
[2021-03-05 05:52] LABS: WHITE BLOOD COUNT 1.32 K/ul (4.6-10.2)
[2021-03-05 05:53] LABS: ANISOCYTOSIS NOT PRESENT (NOT PRESENT)
[2021-03-05 06:01] LABS: THYROID STIMULATING HORMONE 0.135 uIU/L (0.465-4.68)
--- NOTE | 2021-03-05 06:21 | PCM.PROG ---
Date Seen by Provider: 03/05/21 Time Seen by Provider: 06:18 Subjective: 70-year-old female hospital day #2 with Covid/early Covid pneumonia.Patient remains afebrile. She has now had 8 days of symptoms, with symptoms starting approximately on February 25. Pulse rate per patient over the last 24 hours has been anywhere from 75-90 blood pressure stable after ER evaluation at 26 over 70s of 130/72. O2 saturation yesterday in the emergency room 59%. She is on 6 L nasal cannula and she has been 89-93 except for one event at 1639 where she dropped to 59%. Telemetry shows sinus rhythm QRS interval 0.08. There is no I/O data to report at this time. Labs this morning showed a white blood cell count decreased from yesterday from 1.83-1.32. Hemoglobin is stable down mildly from 12.8 yesterday to 12.6 today. Platelets have increased from 10 5-1 13. We will continue to monitor this. Chemistry pa raj today showed sodium 141.2, potassium 3.47, chloride 104.7. Potassium is mildly increased from yesterday she is on oral potassium now. Blood sugar 157.7. Normal creatinine 0.64. Calcium listed as 8.12 which is low. However albumin of 3.73 increases calcium to 8.3 which remains a little bit low. I will replace this today. AST remains mildly elevated at 63.6. ALT remains normal. Her TSH is pending. I did check a D-dimer yesterday evening and she was at 1103.55. She is on prophylaxis dose of Lovenox at this time. I suspect the D- dimer to be elevated due to Covid and not necessarily PE however I will check a CTA today. If negative we will continue the prophylactic dose. If positive we will increase to treatment dose. CTA was completed last night without any evidence of pulmonary embolism. She has emphysematous changes which were noted. She does have mild pulmonary artery hypertension and now evidence noted of either atelectasis or early pneumonia within the right middle lobe lingula and left lung base. She is on a azithromycin and Rocephin. The patient has declined pneumonia vaccine and influenza vaccine. Blood glucose monitoring will continue as she has a history of diabetes. Goal will be to maintain less than 150. We will continue to monitor vital signs and telemetry. She will continue 500 mg of azithromycin daily x3 days and Rocephin 1 g daily x5 days. Similar to my experience with patient yesterday she is awake and oriented but confused at times. Low functioning intellect. History of memory loss and mental illness. No pain reported. O2 in place. She does desaturate to 70s on up to the bathroom. We will obtain extension tubing so patient is not off oxygen. 6:00 this morning critical white blood cell count of 1.32. We are aware. The cherelle cullen does not want transfer. At 6:00 this morning slept some last night oxygen in place at 4 L now. She is maintaining 88 to 90%. Ideally we would maintain greater than 90 to 92%. No SOA at rest only with exertion. Patient has declined remdesivir. I discussed with the patient at length her health this morning. She is aware that she has Covid. She is managing this with ICU team. The patient notes that she and her . She notes that she is able to perform her own ADLs to include bathing twice a day and transferring. Patient takes her own medications. She says she wants to go home. She notes that she has her own oxygen at home and she can take that. And she does not want to remdesivir or other hospital care. Previous admissions were reviewed and she had similar feelings about hospital stays. I asked the patient what happens if she goes home and gets worse she says always come back. She is aware that she has Covid she is aware that it is serious. She is aware that she has a increased mortality due to pneumonia and she voiced that she can take her antibiotics at home. She says she is more. I asked her what day of the week it is and she said is Thursday or Thursday or something. I asked her about a month and she says it is in the fall and the month does not really matter to her. She was unable to tell me the president but then said that it did not matter to her. She did then vocalize Biden. I talked with the POA. I asked Eleanor in room SCU to if the patient has ever been declared unable to make her own decisions and Eleanor said no. I relayed the desires of the patient to go home to Eleanor and she says she cannot I asked why not and she said she just cannot. I asked if anybody else lived at home with them she said her son. But there are no o ther females there is the daughters will not come over until the 10-day isolation is up. I noted patient's 10-day isolation would be up this Thursday. The patient has declined remdesivir. The patient does not on IV fluids, she can tolerate orals at this point. She is desaturating as she ambulates. She notes she has home O2 and she will wear it as she needs it. Eleanor said all okay I will call my son then. At this point I talked with case management. We will get home health involved with physical therapy and occupational therapy as well as nursing. The patient was able to vocalize what would happen if she went home and got worse. I believe she is capable of making this decision. She is aware of mortality risks and vocalized she is aware that she could . She vocalized that she is a DNR and DNI and does not want intubation anyway. As she is aware of the risks and benefits of her decision she is able to vocalize basics of her current health status she reports ability to care for self and ABDIFATAH notes that she is capable of self-care I believe patient is reasonable to go home at this point per her wishes. Nursing and I discussed the above, Case management and I discussed the above, patient and I discussed the above. Despite covid status, she is adamant that she does not want to stay. Abx Day 2. Remdesivir Declined New Problem Hypocalcemia. Previous Problems: Covid + (Stable on 6LNC), Elevated Ddimer (negative PE), Hypokalemia (improving with oral K+Cl-), REVIEW OF SYMPTOMS: (Positives bolded) General: weight loss,fever, chills, night sweats, fatigue,appetite loss HEENT: blurry vision, eye pain, eye discharge, dry eyes, decreased vision,sore throattinnitus, bloody nose, hearing loss, sinus pain/pressure, ear pain/pressure. Respiratory: shortness of breath (with activity) ,cough,hemoptysis, wheezing, pleurisy,CALIX Cardiovascular:chest pain, PND, palpitation, edema,orthopnea,syncope, swelling of extremities Gastro:Nausea, vomiting, diarrhea, hematemesis, abdominal pain, constipation Genito:hematuria, dysuria, glycosuria, hesitancy, frequency, incontinence Musckelo:Arthralgia, myalgia, muscle weakness, joint swelling, NSAID use Skin:rash, pruritis, sores, nail changes, skin thickening, change in wart/mole, itching, rash, new lesions,pruritus, nail changes Neuro: Migraine, numbness, ataxia, tremor, vertigo,weakness, memory loss, Irritability, dizziness Endocrine:excessive thirst, polyuria, cold intolerance, heat intolerance, goiter Psychiatric: depression, anxiety, anti-depressants,alcohol abuse, drug abuse, insomnia,change in sleep pattern and mood changes Heme/lymph:easy bruising, bleeding gums, blood clots, swollen glands, lymphedema, Allergic/immune:allergic rhinitis, hay fever, asthma, hives Objective: Vital Signs - 24 hr 03/04/21 10:30 03/04/21 15:57 03/04/21 16:39 Temperature 98.2 F 98.4 F 98.2 F Pulse Rate 90 78 90 Respiratory Rate 24 19 24 Blood Pressure 90/42 L 90/42 L O2 Sat by Pulse Oximetry 59 L 93 L 59 L 03/04/21 17:12 03/04/21 17:16 03/04/21 21:04 Temperature 97.9 F Pulse Rate 77 79 Respiratory Rate 18 Blood Pressure 126/70 O2 Sat by Pulse Oximetry 93 L 91 L 03/04/21 21:29 03/05/21 05:28 03/05/21 05:57 Temperature 98.1 F 97.8 F Pulse Rate 76 75 Respiratory Rate 20 19 Blood Pressure 126/70 130/72 O2 Sat by Pulse Oximetry 93 L 89 L 90 L Constitutional:Appearance-No acute distress, Consistent with stated age. Orientation- Oriented x 3, alert, no obvious accessory use at this time. Patient did not provide much information/history. Limited understanding.Build and Nutrition-[mildly overweight bmi 26.6. ]General- Patient is pleasant and cooperative with the interview and exam. Integumentary: General-No rashes, ulcers or lesions. Nurse present at window during eval in full PPE. No breakdown buttock, under breast, abdomen, thighs, or ischial tuberosities.Palpation- Normal skin moisture/turgor. Skin is warm to touch, appropriate. Capillary refill is normal bilateral Upper and lower extremity. Head/Neck:Head- normocephalic and atraumatic.Neck- without visible/palpable lumps or pulsations.Palpation- No bony tenderness about head/neck along frontal, occipital, temporal, parietal, mastoid, jawline, zygoma, orbit or any other location. NO temporal artery tenderness. No TMJ tenderness. Neck Supple.Thyroid-No thyromegaly, no nodules Eye:Bilaterally PERRLA, EOMI. No discharge. Upper and lower eyelids are normal. Sclera/conjunctiva normal without discharge. Cornea is normal and clear. Lens is normal. Eyeball appears normal. No ciliary flushing, no conjunctival injection. ENMT:Pinna- normal without tenderness or erythema.External auditory canal Left-normal without erythema or discharge, no excessive cerumen.External auditory canal Right-normal without erythema or discharge, no excessive cerumen.TM left- Weber/pearly, normal light reflex and anatomyTM Right- Weber/pearly, normal light reflex and anatomyHearing Assessment-normal to conver sational speech.Nose and sinus- No sinus tenderness along frontal/maxillary region. External appearance normal and midline.Nares- bilateral quiet airflow, no discharge.Nasal mucosa- No bleeding noted and no ulcerations observed. [place], moist. Turbinates non boggy.Lips-normal color, moist without cracks/lesions Oral Cavity/Palate- hard/soft palate intact without lesions, oral mucosa pink and moist. Dentition assessed [] and discussed appropriate oral care. Tongue normal midline.Oropharynx- no pharyngeal erythema, Uvula midline. No post nasal drip. No exudate.Salivary glands- Non tender to palpation CHEST/LUNG:Inspection- symmetric chest wall no pectus deformity. Mild to early moderate increased effort, no obviou sdistress, Patient is calm. Minimal to no use of accessory muscles.Palpation- nontender sternum, ribline. No abnormal pulsations.Auscultation- Breath sounds coarse and diffuse throughout all lung alexander. tracheal sounds, bronchial sounds overlying sternum, Bronchovessicular sounds between scapulae posteriorly, vessicular breath sounds heard throughout periphery. No e/o consolidation.Adventitious sounds- scattered rhonchi, distant sounds, no wheezes. CARDIOVASCULAR:Carotid artery-normal, no bruits or abnormal pulsations. Jugular vein- no pulsations.Palpation/Percussion- Normal PMI, no palpable thrillAuscultation- Regular rate and rhythm. No murmur noted in sitting, supine positions.Extremities- no digital clubbing, cyanosis, edema, increased warmth. ABDOMEN:Inspection- normal and no visible pulsations. Normal contour. Auscultation- Bowel sounds normal, no abdominal bruits.Palpation/Percussion- soft, non-tender, no rebound tenderness, no rigidity (guarding), no jar tenderness, no masses.Liver-no hepatomegaly,Spleen no splenomegaly,Hernias - none.Rectalnot examined. Peripheral Vascular:Upper extremityLeft- Normal temperature with pink nailbeds and no ulcerations.Upper extremity Right-Normal temperature with pink nailbeds and no ulcerations.Lower extremity- Normal temperature with pink nailbeds and no ulcerations. DP pulses 2+ bilaterally. Pedal hair intact. Normal capillary refill.Edema- No edema. Musculoskeletal:Generalized-No generalized swelling or edema of extremities, no digital clubbing or cyanosis, neurovascularly intact all four extremities. Spine/Ribs- No deformities, masses or tenderness, no known fractures, normal strength, Normal ROM. Normal stability No tenderness along C/T/L spine. Normal appearing ROM about spine. Neurological:General- Moves all 4 extremities symmetrically. Symmetrical face and body posture.Cranial nerves- individually evaluated II-XII and intact. PERRLA, Normal EOMI, visual/special senses appear intact, Face is symmetrical and normal sensation/movement, normal tongue, normal strength/posture of neck musculature.Reflexes- intact with DTR 2+ patellar, Achilles, bicep, brachial, tricep. Ankle clonus normal with 2 beats. Neuropsych:Oriented- Person, place, time. (AAOx3),Mood/affect- FLAT, limited interaction. Not able to articulate well.Speech-Limited speech, Limited understanding.Thought content- limited.Associations- concrete. Judgment/insight- InAppropriate, limited understanding. Lymphatic: Head/Neck- normal size and non tender to palpation.Axillary- normal size and non tender to palpation.Femoral and Inguinal- normal size and non tender to palpation. Laboratory Last Values WBC 1.32 K/ul (4.6-10.2) L* 03/05/21 05:08 RBC 4.28 10^6/ul (4.20-5.40) 03/05/21 05:08 Hgb 12.6 g/dl (12.0-16.0) 03/05/21 05:08 Hct 37.5 % (37.0-47.0) 03/05/21 05:08 MCV 87.6 fl (81.0-99.0) 03/05/21 05:08 MCH 29.4 pg (27.0-31.0) 03/05/21 05:08 MCHC 33.6 (31.8-35.4) 03/05/21 05:08 RDW Coeff of Dequan 15.6 % (11.6-14.8) H 03/05/21 05:08 Plt Count 113 10^3/uL (140-440) L 03/05/21 05:08 Immature Gran % (Auto) 0.5 % (0.0-5.0) 03/04/21 10:15 Neut % (Auto) 50.4 % (42.2-75.2) 03/04/21 10:15 Lymph % (Auto) 31.7 (10.0-50.0) 03/04/21 10:15 [place] % (Auto) 16.9 (0-10) H 03/04/21 10:15 Eos % (Auto) 0.0 % (0.0-7.0) 03/04/21 10:15 Baso % (Auto) 0.5 % (0.0-3.0) 03/04/21 10:15 Neut # (Auto) 0.9 K/ul (2.0-6.9) L 03/04/21 10:15 Lymph # (Auto) 0.6 K/uL (0.60-3.4) 03/04/21 10:15 [place] # (Auto) 0.3 K/uL (0.4-2.0) L 03/04/21 10:15 Eos # (Auto) 0.0 K/ul (0.0-0.7) 03/04/21 10:15 Baso # (Auto) 0.0 K/uL (0-0.2) 03/04/21 10:15 Immature Gran # (Auto) 0.0 (0.0-1.0) 03/04/21 10:15 Neutrophils % (Manual) 63.0 % (42.2-75.2) 03/05/21 05:08 Lymphocytes % (Manual) 26.0 % (10.0-50.0) 03/05/21 05:08 Monocytes % (Manual) 7.0 % (0.0-10.0) 03/05/21 05:08 Myelocytes % 1.0 % (0.0-1.0) 03/05/21 05:08 Reactive Lymphocytes 3.0 % (0.0-5.0) 03/05/21 05:08 Anisocytosis Not present (NOT PRESENT) 03/05/21 05:08 PT 10.7 SEC (9.3-11.0) 03/04/21 10:15 INR 1.03 SI (0.0-3.9) 03/04/21 10:15 Puncture Site R rad 03/04/21 10:14 Base Excess 4.6 (-2.0-3.0) H 03/04/21 10:14 O2 Saturation 69.7 % (94-98) L 03/04/21 10:14 ABG pH 7.46 (7.35-7.45) H 03/04/21 10:14 ABG pCO2 40.0 mmHg (35-45) 03/04/21 10:14 ABG pO2 34.0 mmHg (85-100) L* 03/04/21 10:14 ABG HCO3 28.4 (21-28) H 03/04/21 10:14 ABG Total CO2 29.6 (19-24) H 03/04/21 10:14 Pete Test + 03/04/21 10:14 Hemoglobin 1.5 (0-1.5) 03/04/21 10:14 Oxyhemoglobin 69.9 % (95-100) L 03/04/21 10:14 Carboxyhemoglobin 2.2 (0.5-1.5) H 03/04/21 10:14 Total Hemoglobin 13.3 g/dl (11.7-17.4) 03/04/21 10:14 FiO2 % 21.0 % 03/04/21 10:14 Sodium 141.2 mmol/L (134.5-145) 03/05/21 05:08 Potassium 3.47 mmol/L (3.5-5.1) L 03/05/21 05:08 Chloride 104.7 mmol/L (98-107) 03/05/21 05:08 Carbon Dioxide 26.8 mmol/L (22-30.0) 03/05/21 05:08 Anion Gap 13.17 03/05/21 05:08 BUN 16.5 mg/dL (7-17) 03/05/21 05:08 Creatinine 0.64 mg/dL (0.60-1.30) 03/05/21 05:08 Estimated GFR (MDRD) 91.00 mL/min 03/05/21 05:08 BUN/Creatinine Ratio 25.78 03/05/21 05:08 Glucose 157.7 mg/dL (74-106) H D 03/05/21 05:08 Hemoglobin A1c 5.64 (4.0-6.0) 03/04/21 10:15 Lactic Acid 1.10 mmol/L (0.7-2.1) 03/04/21 10:15 Calcium 8.12 mg/dL (8.4-10.2) L 03/05/21 05:08 Magnesium 1.91 mg/dL (1.6-2.3) 03/04/21 10:15 Total Bilirubin 0.46 mg/dL (0.2-1.3) 03/05/21 05:08 AST 63.6 U/L (14-36) H 03/05/21 05:08 ALT 25.0 U/L (0-35) 03/05/21 05:08 Alkaline Phosphatase 53.2 U/L (53-141) 03/05/21 05:08 Troponin I 0.022 ng/ml (0.0000-0.120) 03/05/21 05:08 NT-Pro-B Natriuret Pep 549.000 pg/mL (0-124) H 03/04/21 10:15 Total Protein 6.75 g/dL (6.3-8.2) 03/05/21 05:08 Albumin 3.73 g/dL (3.5-5.0) 03/05/21 05:08 Globulin 3.02 03/05/21 05:08 Albumin/Globulin Ratio 1.23 03/05/21 05:08 Procalcitonin < 0.05 ng/mL (0.09) 03/04/21 10:15 D-Dimer 1103.55 ng/mL (<500) H 03/04/21 10:15 Adenovirus (PCR) Not detected (NOT DETECT) 03/04/21 10:05 B. pertussis DNA (PCR) Not detected (NOT DETECT) 03/04/21 10:05 B.parapertussis DNA PCR Not detected (NOT DETECT) 03/04/21 10:05 C. pneumoniae DNA (PCR) Not detected (NOT DETECT) 03/04/21 10:05 Coronavirus OC43 (PCR) Not detected (NOT DETECT) 03/04/21 10:05 Coronavirus HKU1 (PCR) Not detected (NOT DETECT) 03/04/21 10:05 Coronavirus 229E (PCR) Not detected (NOT DETECT) 03/04/21 10:05 Coronavirus NL63 (PCR) Not detected (NOT DETECT) 03/04/21 10:05 Human Metapneumovir PCR Not detected (NOT DETECT) 03/04/21 10:05 Influenza Type A (PCR) Not detected (NOT DETECT) 03/04/21 10:05 Influenza B (RT-PCR) Not detected (NOT DETECT) 03/04/21 10:05 M. pneumoniae (PCR) Not detected (NOT DETECT) 03/04/21 10:05 Parainfluenza 1 (PCR) Not detected (NOT DETECT) 03/04/21 10:05 Parainfluenza 2 (PCR) Not detected (NOT DETECT) 03/04/21 10:05 Parainfluenza 3 (PCR) Not detected (NOT DETECT) 03/04/21 10:05 Parainfluenza 4 (PCR) Not detected (NOT DETECT) 03/04/21 10:05 RSV (PCR) Not detected (NOT DETECT) 03/04/21 10:05 Entero/Rhino (PCR) Not detected (NOT DETECT) 03/04/21 10:05 SARS-CoV-2 (PCR) Detected (NOT DETECT) H 03/04/21 10:05 H/H Trends 03/04/21 03/05/21 Range/Units 10:15 05:08 Hgb 12.8 12.6 (12.0-16.0) g/dl Hct 37.7 37.5 (37.0-47.0) % NEW IMAGING: CTA: IMPRESSION: No evidence of pulmonary embolus. Emphysematous changes. Pulmonary artery hypertension. Foci of atelectasis and/or pneumonia within the right middle lobe, lingula and left lung base. Hiatal hernia. (1) COVID-19 determined by clinical diagnostic criteria: Status: Acute Code(s): U07.1 - COVID-19 SNOMED Code(s): 640585362 (2) Pneumonia due to COVID-19 virus: Status: Acute Code(s): U07.1 - COVID-19; J12.82 - Pneumonia due to coronavirus disease 2018 SNOMED Code(s): 633696272278794502 (3) Acquired hypothyroidism: Status: Acute Code(s): E03.9 - Hypothyroidism, unspecified SNOMED Code(s): 248040871 (4) CKD (chronic kidney disease) stage 3, GFR 30-59 ml/min: Status: Acute Code(s): N18.3 - Chronic kidney disease, stage 3 (moderate) SNOMED Code(s): 927027254 (5) COPD (chronic obstructive pulmonary disease): Status: Acute Code(s): J44.9 - Chronic obstructive pulmonary disease, unspecified SNOMED Code(s): 36602624 (6) Dyslipidemia: Status: Acute Code(s): E78.5 - Hyperlipidemia, unspecified SNOMED Code(s): 460083500 (7) Essential (primary) hypertension: Status: Acute Code(s): I10 - Essential (primary) hypertension SNOMED Code(s): 67977034 (8) Type 2 diabetes mellitus without complication, without long-term current use of insulin: Status: Acute Code(s): E11.9 - Type 2 diabetes mellitus without complications SNOMED Code(s): 647273901 (9) Depression: Status: None Code(s): F32.9 - Major depressive disorder, single episode, unspecified SNOMED Code(s): 97485348 (10) Hypocalcemia: Status: Acute Code(s): E83.51 - Hypocalcemia SNOMED Code(s): 8769974 Plan: COVID Pneumonia/Hypoxia: 70-year-old female hospital day #2. Admitted for shortness of breath and Covid positive status. Elevated Ddimer. Ferritin Pending. Patient has declined remdesivir. Understanding limited. D/w POA in room SCU 2 who is also Covid +. Patient cannot go home until POA does. Continue to monitor daily weight, continue O2. They do not want intubation, do not want remdesivir, do not want transfer to another facility as POA is here.. We will continue home dose of Lasix/meds. We will limit fluids while in hospital. We will use dexamethasone 6 mg IVP daily x 5-7 days. She did get a 1000 cc bolus of saline in the ER and BP improved. Saline locked. We will continue to check a ferritin every other day. Added a CRP daily to monitor and this is pending. If the patient requires additional oxygenation we will consider Vapotherm versus BiPAP as next levels. The patient is a DO NOT INTUBATE and we will not intubate or resuscitate. She is aware of the meaning. At present she is not safe to be home, she has e/o pneumonia. With her lack of understanding, she requires hospital admission to make sure she is stable. There is limited role for other therapies at this time. Imaging suggested possible pneumonia and we will treat with 3 days of azithromycin 500 mg IV and Rocephin 1 g IV. PORT score of 141 points Risk Class V 27-29.2% mortality. Hospitalization is needed based on this risk. No Chest pain, essentially unchanged from last evening evaluation. Even though she has a low procalcitonin imaging and patient lack of ability to discuss her care is concerning for pneumonia. I will use abx as listed. CTA showed no PE. - Continue inpatient Admission status. - Telemetry -Oxygen to maintain saturation greater than 90-92%. Nasal cannula 6.0L. If needed change to Vapotherm as next level. -DVT prophylaxis with Lovenox 40 mg -Labs: CBC, CMP daily CRP daily. Troponin q 2-3 days. Ferritin every other day. A1c x1. TSH x1. - Imaging reviewed, no further imaging (CTA today) - Remdesivir declined - Tylenol 500 q. 6 hours as needed for pain and fever HTN: Will continue losartan 25mg daily. No IV fluids for now. Stable overnight. - continue home meds Bicytopenia:Status/cause unknown, suspect may be due to Covid. Plt improving. WBC mildly worse. Will continue to monitor. Declined transfer. No Heme/Onc here to see her. She is aware, POA is aware. Daily CBC recommended. May consider peripheral blood smear as next level. May consider CT abdomen pelvis as well to evaluate status of spleen. For now no abd pain. - Monitor WBC/Plt daily w/ CBC. Acquired Hypothyoidism:Chronic problem on levothyroxine. TSH pending this morning. TSH goal 1-3. - TSH pending Hypocalcemia: Corrects to 8.3. Will add Calcium 500/Vit D 3 BID while in hospital. - PO calcium as listed. Diabetes 2 A1C Goal <7%: At goal a1c 5.65. Goal to maintain glucose 120-150. - ACHS Accu-Cheks - Sliding scale Depression:Chronic process. Continue home medications. -Continue Cogentin and Haldol. - continue trazodone. Insomnia:Chronic process. We will continue home medications continue trazodone, Haldol and Cogentin. - Continue home meds Hyperlipidemia:We will continue Crestor. There is some evidence that Crestor may actually be associated with 32% lower odds of among patients hospitalized for Covid with history of hyperlipidemia. We will continue this me dication. - Continue home meds. DIet:ADA 1800 kcal DVT prophy:Lovenox subcut 40mg daily. GI PROPHY:As the patient is on dexamethasone, we will cover for GI prophylaxis for ulcer prevention. -Protonix 40 mg daily CODE STATUS: DNR. Disposition: HD #2, Abx Day #2. Remdesivir declined. CTA showed Right middle, lingular, left lower lobe concerns for pneumonia. Vitals stable. New problem low calciium, replace orally. Low K+ improving replace orally. Low WBC, status /cause unknown. We will monitor. Declined transfer for heme onc. POA in room 2. Patient provides limited understanding but able to articulate her desire to leave and repurcussions regarding this decision. Port score suggests inpatient admission is appropriate. Home care/outpatient care is not possible and patient meets inpatient status/needs. Saline locked IV due to CHF and concern for COVID. Respiratory care is provided to patient due to COVID status. She ffeel she can care for self. [facility] deniied by patient and POA. The patient's current Covid status, age, remdesivir. and medical problems put her at risk for complications of COVID-19. She is a DNR. She is a DNI. She has declined remdesivir. She is on supplemental oxygen and supplemental dexamethasone. We will continue home dexamethasone x 5 days, inncrease home o2 to 5L constant. We will continue nasal cannula treatment for the hypoxia. We will monitor labs as listed above. After further discussion, she wants to go home. We will prepare d/c. I have d/w patient and with POA. They will get her home. 40 minutes spent rounding today.
[2021-03-05] MEDS ORDERED: LASIX TAB PO SCH (06:30)
[2021-03-05] MEDS ORDERED: SYNTHROID PO SCH (06:30)
[2021-03-05] MEDS ORDERED: K-DUR PO SCH (08:30)
[2021-03-05] MEDS ORDERED: LIDOCAINE HCL 1% SDV IM SCH (09:00)
[2021-03-05] MEDS ORDERED: ROCEPHIN 1 GM/50 ML D5W 1 GM/50 ML BAG IV SCH (09:00)
[2021-03-05] MEDS ORDERED: ROCEPHIN 1 GM VIAL IV SCH (09:00)
[2021-03-05] MEDS ORDERED: COZAAR PO SCH (09:00)
[2021-03-05] MEDS ORDERED: CRESTOR PO SCH (09:00)
[2021-03-05] MEDS ORDERED: ROCEPHIN 1 GM VIAL IM SCH (09:00)
[2021-03-05] MEDS ORDERED: CALCIUM 500 + VIT D 5 MCG (200 IU) TABLET PO SCH (09:00)
[2021-03-05] MEDS: DECADRON IVP SCH (09:33)
[2021-03-05] MEDS: LOVENOX SUBCUT SCH (09:34)
[2021-03-05] MEDS: ZITHROMAX 500 MG in SODIUM CHLORIDE 250 ML IV SCH (10:39)
[2021-03-05] MEDS ORDERED: HUMALOG SUBCUT PRN (11:40)
[2021-03-05] MEDS ORDERED: VEKLURY 100 MG in SODIUM CHLORIDE 250 ML IV SCH (12:00)
--- NOTE | 2021-03-05 12:36 | PCM.DC ---
Final Diagnosis: 1. Covid pneumonia 2. acute respiratory failure 3. Leukocytopenia 4. Thrombocytopenia 5. Hypoxia 6. Hypokalemia 7. Hypocalcemia 8. Chronic hypothyroidism stable 9. Chronic CKD stable. 10. Diabetes stable 11. Hypertension stable 12. Hyperlipidemia stable 13 mood disorder depression stable. Chronic home O2 (1) COVID-19 determined by clinical diagnostic criteria: Status: Acute Code(s): U07.1 - COVID-19 SNOMED Code(s): 761612422 (2) Pneumonia due to COVID-19 virus: Status: Acute Code(s): U07.1 - COVID-19; J12.82 - Pneumonia due to coronavirus disease 2019 SNOMED Code(s): 671714751995501638 (3) Acquired hypothyroidism: Status: Acute Code(s): E03.9 - Hypothyroidism, unspecified SNOMED Code(s): 156630258 (4) CKD (chronic kidney disease) stage 3, GFR 30-59 ml/min: Status: Acute Code(s): N18.3 - Chronic kidney disease, stage 3 (moderate) SNOMED Code(s): 960103173 (5) COPD (chronic obstructive pulmonary disease): Status: Acute Code(s): J44.9 - Chronic obstructive pulmonary disease, unspecified SNOMED Code(s): 24470544 Qualifiers: COPD type: unspecified COPD Qualified Code(s): J44.9 - Chronic obstructive pulmonary disease, unspecified (6) Dyslipidemia: Status: Acute Code(s): E78.5 - Hyperlipidemia, unspecified SNOMED Code(s): 343667573 (7) Essential (primary) hypertension: Status: Acute Code(s): I10 - Essential (primary) hypertension SNOMED Code(s): 79575578 (8) Type 2 diabetes mellitus without complication, without long-term current use of insulin: Status: Acute Code(s): E11.9 - Type 2 diabetes mellitus without complications SNOMED Code(s): 087941670 (9) Depression: Status: None Code(s): F32.9 - Major depressive disorder, single episode, unspecified SNOMED Code(s): 65654523 (10) Hypocalcemia: Status: Acute Code(s): E83.51 - Hypocalcemia SNOMED Code(s): 3408347 Reason for Hospitalization: COVID pneumonia, Hypoxia, respiratory failure, hypokalemia, hypocalcemia, Shortness of breath. Prognosis/Condition at Discharge: Stable, guarded. Medications at Discharge: Ambulatory Orders Medication Instructions Recorded haloperidol 0.5 mg tablet 0.5 mg PO BEDTIME #30 tab-cap 02/04/18 albuterol sulfate 1 vial INHALATION Q4-6H PRN #100 07/07/18 vial benztropine 1 mg tablet 1 mg PO BEDTIME #90 tab-cap 10/18/19 furosemide 40 mg tablet 40 mg PO QDAC #90 tab-cap 09/04/20 losartan 25 mg tablet See Rx Instructions .ROUTE 09/04/20 .COMPLEX #90 unspecified rosuvastatin 20 mg tablet (Crestor) 20 mg PO DAILY #90 tab-cap 09/04/20 trazodone 100 mg tablet 100 mg PO BEDTIME #90 tab-cap 09/04/20 ferrous sulfate 325 mg (65 mg 325 mg PO Q OTHER DAY #180 tablet 01/05/21 iron) tablet (FeroSul) levothyroxine 112 mcg tablet See Rx Instructions .ROUTE 01/28/21 .COMPLEX #90 tab azithromycin 500 mg tablet See Rx Instructions .ROUTE 03/05/21 .COMPLEX #3 tab calcium carbonate 500 mg (1,250 1 tab PO BID #60 tab 03/05/21 mg)-vitamin D3 200 unit tablet (Oyster Shell Calcium-Vit D3) cefdinir 300 mg capsule 300 mg PO BID 5 Days #10 cap 03/05/21 dexamethasone 6 mg tablet 6 mg PO DAILY #5 tab 03/05/21 pantoprazole 40 mg tablet,delayed 40 mg PO ONCE 10 Days #10 tab 03/05/21 release potassium chloride 20 mEq 20 meq PO DAILYWM 30 Days #30 tab 03/05/21 tablet,extended release(part/cryst) (Klor-Con M) Lab/Diagnostics: Laboratory Last Values WBC 1.32 K/ul (4.6-10.2) L* 03/05/21 05:08 RBC 4.28 10^6/ul (4.20-5.40) 03/05/21 05:08 Hgb 12.6 g/dl (12.0-16.0) 03/05/21 05:08 Hct 37.5 % (37.0-47.0) 03/05/21 05:08 MCV 87.6 fl (81.0-99.0) 03/05/21 05:08 MCH 29.4 pg (27.0-31.0) 03/05/21 05:08 MCHC 33.6 (31.8-35.4) 03/05/21 05:08 RDW Coeff of Dequan 15.6 % (11.6-14.8) H 03/05/21 05:08 Plt Count 113 10^3/uL (140-440) L 03/05/21 05:08 Immature Gran % (Auto) 0.5 % (0.0-5.0) 03/04/21 10:15 Neut % (Auto) 50.4 % (42.2-75.2) 03/04/21 10:15 Lymph % (Auto) 31.7 (10.0-50.0) 03/04/21 10:15 Churchill % (Auto) 16.9 (0-10) H 03/04/21 10:15 Eos % (Auto) 0.0 % (0.0-7.0) 03/04/21 10:15 Baso % (Auto) 0.5 % (0.0-3.0) 03/04/21 10:15 Neut # (Auto) 0.9 K/ul (2.0-6.9) L 03/04/21 10:15 Lymph # (Auto) 0.6 K/uL (0.60-3.4) 03/04/21 10:15 Churchill # (Auto) 0.3 K/uL (0.4-2.0) L 03/04/21 10:15 Eos # (Auto) 0.0 K/ul (0.0-0.7) 03/04/21 10:15 Baso # (Auto) 0.0 K/uL (0-0.2) 03/04/21 10:15 Immature Gran # (Auto) 0.0 (0.0-1.0) 03/04/21 10:15 Neutrophils % (Manual) 63.0 % (42.2-75.2) 03/05/21 05:08 Lymphocytes % (Manual) 26.0 % (10.0-50.0) 03/05/21 05:08 Monocytes % (Manual) 7.0 % (0.0-10.0) 03/05/21 05:08 Myelocytes % 1.0 % (0.0-1.0) 03/05/21 05:08 Reactive Lymphocytes 3.0 % (0.0-5.0) 03/05/21 05:08 Anisocytosis Not present (NOT PRESENT) 03/05/21 05:08 PT 10.7 SEC (9.3-11.0) 03/04/21 10:15 INR 1.03 SI (0.0-3.9) 03/04/21 10:15 Puncture Site R rad 03/04/21 10:14 Base Excess 4.6 (-2.0-3.0) H 03/04/21 10:14 O2 Saturation 69.7 % (94-98) L 03/04/21 10:14 ABG pH 7.46 (7.35-7.45) H 03/04/21 10:14 ABG pCO2 40.0 mmHg (35-45) 03/04/21 10:14 ABG pO2 34.0 mmHg (85-100) L* 03/04/21 10:14 ABG HCO3 28.4 (21-28) H 03/04/21 10:14 ABG Total CO2 29.6 (19-24) H 03/04/21 10:14 Pete Test + 03/04/21 10:14 Hemoglobin 1.5 (0-1.5) 03/04/21 10:14 Oxyhemoglobin 69.9 % (95-100) L 03/04/21 10:14 Carboxyhemoglobin 2.2 (0.5-1.5) H 03/04/21 10:14 Total Hemoglobin 13.3 g/dl (11.7-17.4) 03/04/21 10:14 FiO2 % 21.0 % 03/04/21 10:14 Sodium 141.2 mmol/L (134.5-145) 03/05/21 05:08 Potassium 3.47 mmol/L (3.5-5.1) L 03/05/21 05:08 Chloride 104.7 mmol/L (98-107) 03/05/21 05:08 Carbon Dioxide 26.8 mmol/L (22-30.0) 03/05/21 05:08 Anion Gap 13.17 03/05/21 05:08 BUN 16.5 mg/dL (7-17) 03/05/21 05:08 Creatinine 0.64 mg/dL (0.60-1.30) 03/05/21 05:08 Estimated GFR (MDRD) 91.00 mL/min 03/05/21 05:08 BUN/Creatinine Ratio 25.78 03/05/21 05:08 Glucose 157.7 mg/dL (74-106) H D 03/05/21 05:08 Hemoglobin A1c 5.64 (4.0-6.0) 03/04/21 10:15 Lactic Acid 1.10 mmol/L (0.7-2.1) 03/04/21 10:15 Calcium 8.12 mg/dL (8.4-10.2) L 03/05/21 05:08 Magnesium 1.91 mg/dL (1.6-2.3) 03/04/21 10:15 Ferritin 1250.00 ng/mL (11.1-264.0) H 03/05/21 05:08 Total Bilirubin 0.46 mg/dL (0.2-1.3) 03/05/21 05:08 AST 63.6 U/L (14-36) H 03/05/21 05:08 ALT 25.0 U/L (0-35) 03/05/21 05:08 Alkaline Phosphatase 53.2 U/L (53-141) 03/05/21 05:08 Troponin I 0.022 ng/ml (0.0000-0.120) 03/05/21 05:08 NT-Pro-B Natriuret Pep 549.000 pg/mL (0-124) H 03/04/21 10:15 Total Protein 6.75 g/dL (6.3-8.2) 03/05/21 05:08 Albumin 3.73 g/dL (3.5-5.0) 03/05/21 05:08 Globulin 3.02 03/05/21 05:08 Albumin/Globulin Ratio 1.23 03/05/21 05:08 Procalcitonin < 0.05 ng/mL (0.09) 03/04/21 10:15 TSH 0.135 uIU/L (0.465-4.68) L 03/05/21 05:08 D-Dimer 1103.55 ng/mL (<500) H 03/04/21 10:15 Adenovirus (PCR) Not detected (NOT DETECT) 03/04/21 10:05 B. pertussis DNA (PCR) Not detected (NOT DETECT) 03/04/21 10:05 B.parapertussis DNA PCR Not detected (NOT DETECT) 03/04/21 10:05 C. pneumoniae DNA (PCR) Not detected (NOT DETECT) 03/04/21 10:05 Coronavirus OC43 (PCR) Not detected (NOT DETECT) 03/04/21 10:05 Coronavirus HKU1 (PCR) Not detected (NOT DETECT) 03/04/21 10:05 Coronavirus 229E (PCR) Not detected (NOT DETECT) 03/04/21 10:05 Coronavirus NL63 (PCR) Not detected (NOT DETECT) 03/04/21 10:05 Human Metapneumovir PCR Not detected (NOT DETECT) 03/04/21 10:05 Influenza Type A (PCR) Not detected (NOT DETECT) 03/04/21 10:05 Influenza B (RT-PCR) Not detected (NOT DETECT) 03/04/21 10:05 M. pneumoniae (PCR) Not detected (NOT DETECT) 03/04/21 10:05 Parainfluenza 1 (PCR) Not detected (NOT DETECT) 03/04/21 10:05 Parainfluenza 2 (PCR) Not detected (NOT DETECT) 03/04/21 10:05 Parainfluenza 3 (PCR) Not detected (NOT DETECT) 03/04/21 10:05 Parainfluenza 4 (PCR) Not detected (NOT DETECT) 03/04/21 10:05 RSV (PCR) Not detected (NOT DETECT) 03/04/21 10:05 Entero/Rhino (PCR) Not detected (NOT DETECT) 03/04/21 10:05 SARS-CoV-2 (PCR) Detected (NOT DETECT) H 03/04/21 10:05 CT CHEST CTA: MPRESSION: No evidence of pulmonary embolus. Emphysematous changes. Pulmonary artery hypertension. Foci of atelectasis and/or pneumonia within the right middle lobe, lingula and left lung base. Hiatal hernia. CXR Mild cardiomegaly is again noted. There are bilateral infiltrates in the perihilar regions extending into the bases more noticeable on the left. These infiltrates are relatively mild and may be related to vascular congestion although clinical correlation for any evidence of pneumonia is recommended. There is no visible pleural fluid or pneumothorax. Education Provided to Patient and Family: 1. Covid Education 2. Decadron, dexamethasone, methylprednisolone, prednisone. Pt notified of potential pros/risks of steroid treatment including rapid improvement of condition; allergic reaction, psychologic reaction (depression, anxiety, insomnia), skin change at injection site (color, dimpling), muscle weakness, changes in blood sugar, cataracts/ glaucoma, AVN. This list is not all inclusive and patient is aware they may refuse treatment. 3. Remdesivir R/B/A to meds d/w patient, SE reviewed, handout offered regarding medications listed. 4. Dexamethason R/B/A to meds d/w patient, SE reviewed, handout offered regarding medications listed. 5. Azithromycin/Cefdinir R/B/A to meds d/w patient, SE reviewed, handout offered regarding medications listed. Lengthy discussion on current symptoms home oxygen and when to return should symptoms worsen. Patient aware it is her right to be able to say that she wants to go home. She likely is medically stable to go home at this time. However Covid limitations and risks are present. Patient will need to isolate through March 07 with earliest release on March 08. The patient and is her POA and she is currently admitted to the hospital. The POA is son will come get patient. POA son also has Covid. Follow-ups: 1. Dr. Bergman 03/12/21 at 1300. 2. Labs to be completed at visit 03/12/21 Discharge Disposition: Home Hospital Course: 70-year-old female presented to emergency room on March 04 at 1230 with shortness of breath respiratory complaints. Temperature 98.2, pulse 90, respiratory rate 24 blood pressure 90/42 pulse ox 59 on room air acutely hypoxic. She noted to ER provider 1 week worsening shortness of breath with low oxygen saturation. Worsening symptoms constant, moderate in severity with dyspnea at rest. No aggravating or alleviating factors. Cough and fever were noted. Patient has known history of obesity, nonvaccination status. Known history of hypertension obesity hyperlipidemia, depression, diabetes, hypothyroidism. She was using accessory muscles, retractions were present, diminished breath sounds throughout, a long expiratory phase, difficulty speaking in full sentences, fatigue, leg swelling. Differential from the emergency room showed CHF, pulmonary edema, pneumonia, pneumothorax, SARS, bronchitis, bronchiolitis, RSV, bronchospasm, laryngospasm, mycoplasma, sinusitis and URI. EKG was completed at 1017 and felt to be normal. Labs showed a bicytopenia with a white blood cell count of 1.83, hemoglobin 12.8 normal and platelets of 105,000 which is low. Differential showed a monocytosis of 16.9% neutrophils of 50.4% lymphocytes 31.7% and a limited number of 0.6. Chemistry panel showed sodium 138.4, potassium low at 3.18, BUN 26.7 creatinine 1.05 and a glucose of 104.1. ABG showed base excess 4.6, O2 saturation 69.7, pH 7.46 PCO2 of 40, PO2 of 34, bicarb 20.4 CO2 29.6. She did pass Pete's test. Covid was positive on PCR. Lactic acid was 1.10 procalcitonin is less than 0.05. Calcium 8.47. Remainder of metabolic panel within acceptable limits. Magnesium of 1.91 proBNP mildly elevated at 549. She was given albuterol in the emergency room, IV fluids 1 L bolus and ipratropium bromide. ABG was consistent with hypoxia.She was started on 6 L nasal canula. This allowed her to saturate in the high 90s. Unknown cause of the bicytopenia. They discussed case with me accepted admission. Patient was transported to SCU for further admission. She will be admitted to inpatient status. We will use oxygen via nasal cannula to maintain saturation greater than 92%. Blood cultures have been collected. We will get a metabolic panel daily and a CBC daily to monitor the platelets and white blood cell count. We will add Lovenox 40 mg of cutaneous daily for DVT prophylaxis. We will check a ferritin to monitor for symptoms. We will check this every other day. The patient has not had a A1c since 2018. And this was listed at 4.9. I will repeat A1c today. ABG interpretation primary metabolic alkalosis with full respiratory compensation.Home meds were reviewed we will continue the albuterol in the hospital we will also continue ipratropium. We will use the shared canister technique due to Covid status. I will hold the iron while in hospital. We will continue her losartan Crestor benztropine Haldol trazodone Lasix levothyroxine. I have started her on dexamethasone 6 mg daily. We have discussed remdesivir with the patient and she does not want this. We reviewed the risks and benefits to hospitalization. We have discussed risks with intubation. Patient is a DO NOT RESUSCITATE status. She is aware of what this means. We will cover fever with Tylenol. We will cover thromboprophylaxis as noted above. Due to oxygen need, dexamethasone is recommended as is remdesivir. Again patient has declined this. I will try to maintain her on the senior clinical research associate status to avoid overhydration and fluid within the lungs. We will escalate therapy as needed. She is a DO NOT INTUBATE. We will consider Vapotherm and/or BiPAP as needed. We will add telemetry for monitoring as well. There is lack of benefit to Regeneron Cataldo inside of hospitalized patients. Other agents such as ivermectin, Plaquenil, chloroquine, convalescent plasma etc. are no longer recommended. Respiratory support will be monitored. At this time we will continue to monitor patient for worsening. We will maintain her on nasal cannula until she needs more and we will escalate care as needed. Again remdesivir was declined by patient. We will start her on azithromycin and on ceftriaxone today. The patient POA is currently admitted with COVID as well. Nobody at home to help patient. Patient is unable to care for self. She is living with her aunt Nelson lawrence. Patient was seen in room SCU3. She does not want remdeseviir. She does not want to be in hospital. She is SOA at rest. She asked for me to talk with her aunt. I did talk with patient POA in room SCU-2 and discussed the above information. Nelson noted patient cannot care for self, cannot cook for self, cannot be alone at home. They do not want patient in correction. Do not want patient transferred. They do not want intubation, do not want CPR, do not want resuscitation. At present we will continue to provide care as listed. I reviewed the low WBC. I reviewed low plt and low K+ with nelson. They want comfort care, whatever that means in current state. 03/05/21 HD #2: 1-year-old female hospital day #2 with Covid/early Covid pneumonia.Patient remains afebrile. She has now had 8 days of symptoms, with symptoms starting approximately on February 25. Pulse rate per patient over the last 24 hours has been anywhere from 75-90 blood pressure stable after ER evaluation at 26 over 70s of 130/72. O2 saturation yesterday in the emergency room 59%. She is on 6 L nasal cannula and she has been 89-93 except for one event at 1639 where she dropped to 59%. Telemetry shows sinus rhythm QRS interval 0.08. There is no I/O data to report at this time. Labs this morning showed a white blood cell count decreased from yesterday from 1.83-1.32. Hemoglobin is stable down mildly from 12.8 yesterday to 12.6 today. Platelets have increased from 10 5-1 13. We will continue to monitor this. Chemistry panel today showed sodium 141.2, potassium 3.47, chloride 104.7. Potassium is mildly increased from yesterday she is on oral potassium now. Blood sugar 157.7. Normal creatinine 0.64. Calcium listed as 8.12 which is low. However albumin of 3.73 increases calcium to 8.3 which remains a little bit low. I will replace this today. AST remains mildly elevated at 63.6. ALT remains normal. Her TSH is pending. I did check a D-dimer yesterday evening and she was at 1103.55. She is on prophylaxis dose of Lovenox at this time. I suspect the D- dimer to be elevated due to Covid and not necessarily PE however I will check a CTA today. If negative we will continue the prophylactic dose. If positive we will increase to treatment dose. CTA was completed last night without any evidence of pulmonary embolism. She has emphysematous changes which were noted. She does have mild pulmonary artery hypertension and now evidence noted of either atelectasis or early pneumonia within the right middle lobe lingula and left lung base. She is on a azithromycin and Rocephin. The patient has declined pneumonia vaccine and influenza vaccine. Blood glucose monitoring will continue as she has a history of diabetes. Goal will be to maintain less than 150. We will continue to monitor vital signs and telemetry. She will continue 500 mg of azithromycin daily x3 days and Rocephin 1 g daily x5 days. Similar to my experience with patient yesterday she is awake and oriented but confused at times. Low functioning intellect. History of memory loss and mental illness. No pain reported. O2 in place. She does desaturate to 70s on up to the bathroom. We will obtain extension tubing so patient is not off oxygen. 6:00 this morning critical white blood cell count of 1.32. We are aware. The patient does not want transfer. At 6:00 this morning slept some last night oxygen in place at 4 L now. She is maintaining 88 to 90%. Ideally we would maintain greater than 90 to 92%. No SOA at rest only with exertion. Patient has declined remdesivir. I discussed with the patient at length her health this morning. She is aware that she has Covid. She is managing this with ICU team. The patient notes that she and her . She notes that she is able to perform her own ADLs to include bathing twice a day and transferring. Patient takes her own medications. She says she wants to go home. She notes that she has her own oxygen at home and she can take that. And she does not want to remdesivir or other hospital care. Previous admissions were reviewed and she had similar feelings about hospital stays. I asked the patient what happens if she goes home and gets worse she says always come back. She is aware that she has Covid she is aware that it is serious. She is aware that she has a increased mortality due to pneumonia and she voiced that she can take her antibiotics at home. She says she is more. I asked her what day of the week it is and she said is Thursday or Thursday or something. I asked her about a month and she says it is in the fall and the month does not really matter to her. She was unable to tell me the president but then said that it did not matter to her. She did then vocalize Biden. I talked with the POA. I asked Nelson in room SCU to if the patient has ever been declared unable to make her own decisions and Nelson said no. I relayed the desires of the patient to go home to Nelson and she says she cannot I asked why not and she said she just cannot. I asked if anybody else lived at home with them she said her son. But there are no other females there is the daughters will not come over until the 10-day isolation is up. I noted patient's 10-day isolation would be up this Thursday. The patient has declined remdesivir. The patient does not on IV fluids, she can tolerate orals at this point. She is desaturating as she ambulates. She notes she has home O2 and she will wear it as she needs it. Nelson said all okay I will call my son then. At this point I talked with case management. We will get home health involved with physical therapy and occupational therapy as well as nursing. The patient was able to vocalize what would happen if she went home and got worse. I believe she is capable of making this decision. She is aware of mortality risks and vocalized she is aware that she could . She vocalized that she is a DNR and DNI and does not want intubation anyway. As she is aware of the risks and benefits of her decision she is able to vocalize basics of her current health status she reports ability to care for self and ABDIFATAH notes that she is capable of self-care I believe patient is reasonable to go home at this point per her wishes. Nursing and I di scussed the above, Case management and I discussed the above, patient and I discussed the above. Despite covid status, she is adamant that she does not want to stay. Abx Day 2. Remdesivir Declined New Problem Hypocalcemia. Previous Problems: Covid + (Stable on 6LNC), Elevated Ddimer (negative PE), Hypokalemia (improving with oral K+Cl-), D/C with 3 days azithromycin 500 mg PO. Cefdiinir 300mg BID x 5 days. Dexamethasone 6mg PO daily x 5 days. Provide new rx for potassium 20meq daily. Calcium carbonate 500mg/VitD3 200units 1x daily. Protonnix 40mg daily x 10 days. See back in offfice with me next thursday. The patient is aware that she can return to emergency room if worsening. She does not feel she wants to stay here and wait. We will prepare discharge today and she can follow-up in clinic next week. Oxygen levels are maintained greater than 90% with 5 L. We will discharge her home on 5 L nasal cannula. Written order to be provided. REVIEW OF SYMPTOMS: (Positives bolded) General: weight loss,fever, chills, night sweats,fatigue,appetite loss HEENT: blurry vision, eye pain, eye discharge, dry eyes, decreased vision,sore throattinnitus, bloody nose, hearing loss, sinus pain/pressure, ear pain/pressure. Respiratory: shortness of breath (with activity) ,cough,hemoptysis, wheezing, pleurisy,CALIX Cardiovascular:chest pain, PND, palpitation, edema,orthopnea,syncope, swelling of extremities Gastro:Nausea, vomiting, diarrhea, hematemesis, abdominal pain, constipation Genito:hematuria, dysuria, glycosuria, hesitancy, frequency, incontinence Musckelo:Arthralgia, myalgia, muscle weakness, joint swelling, NSAID use Skin:rash, pruritis, sores, nail changes, skin thickening, change in wart/mole, itching, rash, new lesions,pruritus, nail changes Neuro: Migraine, numbness, ataxia, tremor, vertigo,weakness, memory loss, Irritability, dizziness Endocrine:excessive thirst, polyuria, cold intolerance, heat intolerance, goiter Psychiatric: depression, anxiety, anti-depressants,alcohol abuse, drug abuse, insomnia,change in sleep pattern and mood changes Heme/lymph:easy bruising, bleeding gums, blood clots, swollen glands, lymphe marcell, Allergic/immune:allergic rhinitis, hay fever, asthma, hives Vital Signs - 24 hr 03/04/21 15:57 03/04/21 16:39 03/04/21 17:12 Temperature 98.4 F 98.2 F 97.9 F Pulse Rate 78 90 77 Respiratory Rate 19 24 18 Blood Pressure 90/42 L 126/70 O2 Sat by Pulse Oximetry 93 L 59 L 93 L 03/04/21 17:16 03/04/21 21:04 03/04/21 21:29 Temperature 98.1 F Pulse Rate 79 76 Respiratory Rate 20 Blood Pressure 126/70 O2 Sat by Pulse Oximetry 91 L 93 L 03/05/21 05:28 03/05/21 05:57 03/05/21 10:00 Temperature 97.8 F Pulse Rate 75 Respiratory Rate 19 Blood Pressure 130/72 O2 Sat by Pulse Oximetry 89 L 90 L 93 L Constitutional:Appearance-No acute distress, Consistent with stated age. Orientation- Oriented x 3, alert, no obvious accessory use at this time. Patient did not provide much information/history. Limited understanding.Build and Nutrition-[mildly overweight bmi 26.6. ]General- Patient is pleasant and cooperative with the interview and exam. Integumentary: General-No rashes, ulcers or lesions. Nurse present at window during eval in full PPE. No breakdown buttock, under breast, abdomen, thighs, or ischial tuberosities.Palpation- Normal skin moisture/turgor. Skin is warm to touch, appropriate. Capillary refill is normal bilateral Upper and lower extremity. Head/Neck:Head- normocephalic and atraumatic.Neck- without visible/palpable lumps or pulsations.Palpation- No bony tenderness about head/neck along frontal, occipital, temporal, parietal, mastoid, jawline, zygoma, orbit or any other location. NO temporal artery tenderness. No TMJ tenderness. Neck Supple.Thyroid-No thyromegaly, no nodules Eye:Bilaterally PERRLA, EOMI. No discharge. Upper and lower eyelids are normal. Sclera/conjunctiva normal without discharge. Cornea is normal and clear. Lens is normal. Eyeball appears normal. No ciliary flushing, no conjunctival injection. ENMT:Pinna- normal without tenderness or erythema.External auditory canal Left-normal without erythema or discharge, no excessive cerumen.External auditory canal Right-normal without erythema or discharge, no excessive cerumen.TM left- Weber/pearly, normal light reflex and anatomyTM Right- Weber/pearly, normal light reflex and anatomyHearing Assessment-normal to conversational speech.Nose and sinus- No sinus tenderness along frontal/maxillary region. External appearance normal and midline.Nares- bilateral quiet airflow, no discharge.Nasal mucosa- No bleeding noted and no ulcerations observed. [place], moist. Turbinates non boggy.Lips-normal color, moist without cracks/lesionsOral Cavity/Palate- hard/soft palate intact without lesions, oral mucosa pink and moist. Dentition assessed [] and discussed appropriate oral care. Tongue normal midline.Oropharynx- no pharyngeal erythema, Uvula midline. No post nasal drip. No exudate.Salivary glands- Non tender to palpation CHEST/LUNG:Inspection- symmetric chest wall no pectus deformity. Mild to early moderate increased effort, no obviou sdistress, Patient is calm. Minimal to no use of accessory muscles.Palpation- nontender sternum, ribline. No abnormal pulsations.Auscultation- Breath sounds coarse and diffuse throughout all lung alexander. tracheal sounds, bronchial sounds overlying sternum, Bronchovessicular sounds between scapulae posteriorly, vessicular breath sounds heard throughout periphery. No e/o consolidation.Adventitious sounds- scattered rhonchi, distant sounds, no wheezes. CARDIOVASCULAR:Carotid artery-normal, no bruits or abnormal pulsations. Jugular vein- no pulsations.Palpation/Percussion- Normal PMI, no palpable thrillAuscultation- Regular rate and rhythm. No murmur noted in sitting, supine positions.Extremities- no digital clubbing, cyanosis, edema, increased warmth. ABDOMEN:Inspection- normal and no visible pulsations. Normal contour. Auscultation- Bowel sounds normal, no abdominal bruits.Palpation/Percussion- soft, non-tender, no rebound tenderness, no rigidity (guarding), no jar tenderness, no masses.Liver-no hepatomegaly,Spleen no splenomegaly,Hernias - none.Rectalnot examined. Peripheral Vascular:Upper extremityLeft- Normal temperature with pink nailbeds and no ulcerations.Upper extremity Right-Normal temperature with pink nailbeds and no ulcerations.Lower extremity- Normal temperature with pink nailbeds and no ulcerations. DP pulses 2+ bilaterally. Pedal hair intact. Normal capillary refill.Edema- No edema. Musculoskeletal:Generalized-No generalized swelling or edema of extremities, no digital clubbing or cyanosis, neurovascularly intact all four extremities. Spine/Ribs- No deformities, masses or tenderness, no known fractures, normal strength, Normal ROM. Normal stability No tenderness along C/T/L spine. Normal appearing ROM about spine. Neurological:General- Moves all 4 extremities symmetrically. Symmetrical face and body posture.Cranial nerves- individually evaluated II-XII and intact. PERRLA, Normal EOMI, visual/special senses appear intact, Face is symmetrical and normal sensation/movement, normal tongue, normal strength/posture of neck musculature.Reflexes- intact with DTR 2+ patellar, Achilles, bicep, brachial, tricep. Ankle clonus normal with 2 beats. Neuropsych:Oriented- Person, place, time. (AAOx3),Mood/affect- FLAT, limited interaction. Not able to articulate well.Speech-Limited speech, Limited understanding.Thought content- limited.Associations- concrete. Judgment/insight- InAppropriate, limited understanding. Lymphatic: Head/Neck- normal size and non tender to palpation.Axillary- normal size and non tender to palpation.Femoral and Inguinal- normal size and non tender to palpation. Plan: 1. COVID 19 +. You are in isolation through 03/07/21 and can be released on 03/08/21. This means that you can go out to restaurants to grocery stores etc. due to risk of contamination and exposure of others. 2. We will increase her home oxygen to 5 L by nose. You need to be on this constantly. 3. We will provide 5 days of steroids by mouth. 4. We will provide a total of 5 days of antibiotics to cover for pneumonia. 5. Appt with me on thursday03/12/21 at 100 pm I have prearranged the appt for you. 6. If you are worsening you can return to the emergency room. 7. Hand hygiene encouraged 8. I will discharge you with potassium and calcium. We will need to check these labs after next visit. 9. I will provide 10 days of antiacid medication to cover for GI prophylaxis while on steroids. Discharge prepared per patient request. >30 minutes spent with patient today. See progress note from 03/05/21 for extra information about discussion w/ Patient and POA..
[2021-03-05 14:00] VITALS: BP 118/71; TEMP 97.6
== END 2021-03-05 15:50 | disposition home or self-care (01) | DRG 177 ==
LOC: ED 09:59 → SCU 14:23
PROVIDERS: ADMIT Family Medicine; ATTEND Family Medicine
DX: J44.9 Chronic obstructive pulmonary disease, unspecified; R06.02 Shortness of breath; E03.9 Hypothyroidism, unspecified; E78.5 Hyperlipidemia, unspecified; U07.1 COVID-19; I10 Essential (primary) hypertension; E83.51 Hypocalcemia; J12.82 Pneumonia due to coronavirus disease 2019; F32.9 Major depressive disorder, single episode, unspecified; N18.30 Chronic kidney disease, stage 3 unspecified; D72.819 Decreased white blood cell count, unspecified; E11.9 Type 2 diabetes mellitus without complications